=== PATIENT | female | born 1945 | race African-American/Black ===

== ENCOUNTER 2016-08-16 23:33 | Inpatient (IN) | payer OTHER ==
[2016-08-16] MEDS ORDERED: ALBUTEROL SO4 2.5/IPRATROPIUM 0.5 INH SOL 3 ML VIAL.NEB. NEB ONE (23:40)
[2016-08-16] MEDS ORDERED: methylPREDNISolone NA SUCC 125 MG/2 ML VIAL ONE (23:40)
[2016-08-16] MEDS ORDERED: SODIUM CHLORIDE 1,000 ML IV SCH (23:45)
--- NOTE | 2016-08-16 23:47 | PDOC ---
History of Present Illness - General History Source: Patient, EMS Exam Limitations: No Limitations - History of Present Illness Initial Comments: 08/17/16 01:11 The patient is a 71 year old female, with a significant past medical history of asthma and diabetes, who presents to the emergency department via EMS with wheezing, shortness of breath and chest discomfort since earlier this evening. The patient additionally reports a subjective fever since earlier today. The patient states that her chest discomfort only occurs when she experiences episodes of shortness of breath. EMS reports that the patient was put on O2 and was given Duoneb x 5 and Solumedrol en route to the ED. Upon arrival to the ED, the patients O2 saturation is 92% on oxygen. The patient denies any recent illnesses, nausea, vomiting, diarrhea, constipation, abdominal pain or any dysuria. The patient states that she did get a flu shot this year. Her is with her in the ED. Allergies: None reported. Past Surgical History: None reported. Social History: Non smoker. Denies alcohol or drug use. PCP: Dr. Gutierrez ([place]) <Arcelia Salter - Last Filed: 08/17/16 01:26> <Thanh Mireles - Last Filed: 08/17/16 01:50> - General Chief Complaint: Shortness of Breath Stated Complaint: SHORTNESS OF BREATH Past History <Arcelia Salter - Last Filed: 08/17/16 01:26> <Thanh Mireles - Last Filed: 08/17/16 01:50> - Past Medical History Allergies/Adverse Reactions: Allergies Allergy/AdvReac Type Severity Reaction Status Date / Time No Known Allergies Allergy Verified 08/16/16 23:49 Review of Systems - Review of Systems Able to Perform ROS?: Yes Comments:: 08/17/16 00:22 GENERAL/CONSTITUTIONAL: +Fever. No chills. No weakness. HEAD, EYES, EARS, NOSE AND THROAT: No change in vision. No ear pain or discharge. No sore throat. CARDIOVASCULAR: +Shortness of breath, chest pain. RESPIRATORY: +Wheezing. No cough or hemoptysis. GASTROINTESTINAL: No nausea, vomiting, diarrhea or constipation. GENITOURINARY: No dysuria, frequency, or change in urination. MUSCULOSKELETAL: No joint or muscle swelling or pain. No neck or back pain. SKIN: No rash. NEUROLOGIC: No headache, vertigo, loss of consciousness, or change in strength/ sensation. ENDOCRINE: No increased thirst. No abnormal weight change. HEMATOLOGIC/LYMPHATIC: No anemia, easy bleeding, or history of blood clots. ALLERGIC/IMMUNOLOGIC: No hives or skin allergy. <Arcelia Salter - Last Filed: 08/17/16 01:26> *Physical Exam - Vital Signs Last Vital Signs Temp Pulse Resp BP Pulse Ox 101.2 F H 130 H 25 H 182/79 92 L 08/16/16 23:45 08/16/16 23:45 08/16/16 23:45 08/16/16 23:45 08/16/16 23:45 - Physical Exam Comments: 08/17/16 01:12 GENERAL: Awake, alert, and fully oriented, in no acute distress. HEAD: No signs of trauma. EYES: PERRLA, EOMI, sclera anicteric, conjunctiva clear. ENT: Auricles normal inspection, hearing grossly normal, nares patent, oropharynx clear without exudates. Moist mucosa. NECK: Normal ROM, supple, no lymphadenopathy, JVD, or masses. LUNGS: Diffuse wheezing and rales in both lung gonzales. Breath sounds equal. No crackles. HEART: Regular rate and rhythm, normal S1 and S2, no murmurs, rubs or gallops. ABDOMEN: Soft, nontender, normoactive bowel sounds. No guarding, no rebound. No masses. EXTREMITIES: Normal range of motion, no peripheral edema. No clubbing or cyanosis. No cords, erythema, or tenderness. NEUROLOGICAL: Cranial nerves II through XII grossly intact. Normal speech, normal gait. SKIN: Warm, dry, normal turgor, no rashes or lesions noted. <Arcelia Salter - Last Filed: 08/17/16 01:26> Heart Score/ECG Review #1 ECG reviewed & interpreted by me at: 00:02 (Vent Rate: 124 bpm. Sinus tachycardia. Biatrial enlargement.) <Arcelia Salter - Last Filed: 08/17/16 01:26> ED Treatment Course - LABORATORY CBC & Chemistry Diagram: 08/17/16 00:43 08/16/16 00:43 <Arcelia Salter - Last Filed: 08/17/16 01:26> - LABORATORY CBC & Chemistry Diagram: 08/17/16 00:43 08/16/16 00:43 <Thanh Mireles - Last Filed: 08/17/16 01:50> Medical Decision Making - Medical Decision Making 08/17/16 01:26 EXAM: CHEST X-RAY PORTABLE Reviewed By: Dr. Conrado Carbajal IMPRESSION: No acute radiographic abnormality. <Arcelia Salter - Last Filed: 08/17/16 01:26> - Medical Decision Making 08/17/16 01:39 CXR read as negative by the radiologist. I looked at the CXR and there appears to be a streaky lingular infiltrate? There is a clinical pneumonia. <Thanh Mireles - Last Filed: 08/17/16 01:50> *DC/Admit/Observation/Transfer - Attestations Scribe Attestion: 08/17/16 00:10 Documentation prepared by Arcelia Salter, acting as pediatric medical assistant for Thanh Mireles MD, /DO. <Arcelia Salter - Last Filed: 08/17/16 01:26> - Discharge Dispostion Admit: Yes <Thanh Mireles - Last Filed: 08/17/16 01:50> Diagnosis at time of Disposition: Pneumonia - Discharge Dispostion Condition at time of disposition: Fair - Referrals Referrals: James Gutierrez [Primary Care Provider] -
[2016-08-16] MEDS ORDERED: ACETAMINOPHEN 500 MG TABLET (FP) PO ONE (23:59)
[2016-08-17] MEDS: ALBUTEROL SO4 0.083% IH SOL 2.5 MG/3 ML VIAL.NEB. NEB SCH ×4 (00:10→03:06)
[2016-08-17] MEDS ORDERED: ALBUTEROL SO4 0.083% IH SOL 2.5 MG/3 ML VIAL.NEB. NEB ONE ×2 (00:14→02:03)
[2016-08-17] MEDS ORDERED: ACETAMINOPHEN 325 MG TABLET (FP) ONE (00:14)
[2016-08-17 00:58] LABS: BASOPHIL 0.9 % (0-2.0); EOSINOPHIL 0.1 % (0-4.5); MCH 29.6 pg (25.7-33.7); MCHC 33.3 g/dl (32.0-36.0); MEAN PLT VOLUME 9.4 fl (7.5-11.1); NEUTROPHILS 88.3 % (42.8-82.8); PLATELET COUNT 245 K/MM3 (134-434); RDW 12.9 % (11.6-15.6); WHITE BLOOD COUNT 18.4 K/mm3 (4.0-10.0)
[2016-08-17] MEDS ORDERED: SODIUM CHLORIDE 500 ML IV STA (01:08)
[2016-08-17] MEDS ORDERED: AZITHROMYCIN 1 GM PACKET PO ONE (01:09)
[2016-08-17] MEDS ORDERED: CEFTRIAXONE 1,000 MG in DEXTROSE 5%-WATER - 50 ML IVPB ONE (01:10)
[2016-08-17 01:18] LABS: ALBUMIN 4.3 g/dl (3.4-5.0); ALK PHOS 84 U/L (45-117); ANION GAP 13 (8-16); BILIRUBIN,TOTAL 0.6 mg/dL (0.2-1.0); CALCIUM 9.5 mg/dL (8.5-10.1); CO2 26 mmol/L (21-32); CREATININE 0.9 mg/dL (0.55-1.02); GLUCOSE,RANDOM 162 mg/dL (74-106); SGOT/AST 21 U/L (15-37); SGPT/ALT 22 U/L (12-78)
[2016-08-17 01:21] LABS: TROPONIN I < 0.02 ng/ml (0.00-0.05)
--- NOTE | 2016-08-17 01:48 | PN ---
<Della Meeks - Last Filed: 08/17/16 01:48> Teaching Attending Note Name of Resident: Nel Bains <Marin Kitchen - Last Filed: 08/17/16 04:14> Teaching Attending Note ATTENDING PHYSICIAN STATEMENT I saw and evaluated the patient. I reviewed the resident's note and discussed the case with the resident. I agree with the resident's findings and plan as documented. SUBJECTIVE: The patient is a 71 year old female being admitted for shortness of breath who presented to the emergency department with wheezing, shortness of breath, and chest discomfort since earlier this evening. Upon examination the patient was on 4L of O2. The patient reported that her peak flow at baseline is less than 200 mm. She denied any previous intubation. Past medical history: Asthma, Diabetes OBJECTIVE: Vital Signs: Last Vital Signs Temp Pulse Resp BP Pulse Ox 99.5 F 144 H 25 H 132/62 95 08/17/16 01:11 08/17/16 01:11 08/16/16 23:45 08/17/16 01:11 08/17/16 01:11 GENERAL: Elderly female lying in propped up position Awake, alert, and fully oriented, in mild respiratory distress. HEENT: Atraumatic. PERRLA, EOMI. Moist mucosa. No JVD. NC at 4L LUNGS: Decreased breath sounds bilaterally, expiratory wheezes, left basal crackle, using accessory muscles. HEART: Regular rate and rhythm, normal S1 and S2, systolic murmur, peripheral pulses normal and equal bilaterally. ABDOMEN: Soft, nontender, normoactive bowel sounds. No guarding, no rebound. No masses EXTREMITIES: Normal inspection, Normal range of motion, no edema. No clubbing or cyanosis. NEUROLOGICAL: Cranial nerves II through XII grossly intact. Normal speech, normal gait, no focal sensorimotor deficits SKIN: Warm, Dry, normal turgor, no rashes or lesions noted. Labs: CBCD WBC 18.4 K/mm3 (4.0-10.0) H 08/17/16 00:43 RBC 4.62 M/mm3 (3.60-5.2) 08/17/16 00:43 Hgb 13.7 GM/dL (10.7-15.3) 08/17/16 00:43 Hct 41.1 % (32.4-45.2) 08/17/16 00:43 MCV 89.0 fl (80-96) 08/17/16 00:43 MCHC 33.3 g/dl (32.0-36.0) 08/17/16 00:43 RDW 12.9 % (11.6-15.6) 08/17/16 00:43 Plt Count 245 K/MM3 (134-434) 08/17/16 00:43 MPV 9.4 fl (7.5-11.1) 08/17/16 00:43 CMP Sodium 139 mmol/L (136-145) 08/16/16 00:43 Potassium 3.4 mmol/L (3.5-5.1) L 08/16/16 00:43 Chloride 100 mmol/L (98-107) 08/16/16 00:43 Carbon Dioxide 26 mmol/L (21-32) 08/16/16 00:43 Anion Gap 13 (8-16) 08/16/16 00:43 BUN 11 mg/dL (7-18) 08/16/16 00:43 Creatinine 0.9 mg/dL (0.55-1.02) 08/16/16 00:43 Creat Clearance w eGFR > 60 (>60) 08/16/16 00:43 Calcium 9.5 mg/dL (8.5-10.1) 08/16/16 00:43 Total Bilirubin 0.6 mg/dL (0.2-1.0) 08/16/16 00:43 AST 21 U/L (15-37) 08/16/16 00:43 ALT 22 U/L (12-78) 08/16/16 00:43 Alkaline Phosphatase 84 U/L (45-117) 08/16/16 00:43 Total Protein 8.0 g/dl (6.4-8.2) 08/16/16 00:43 Albumin 4.3 g/dl (3.4-5.0) 08/16/16 00:43 Imaging: CXR Findings-Frontal view of chest Heart size normal. No consolidation, pleural effusion or pneumothorax. No acute bony abnormality. Impression-No acute radiographic abnormality. ASSESSMENT AND PLAN: Sepsis vs leucocytosis secondary to pneumonia and asthma exacerbation -ABG (chronic hypoxia with metabolic acidosis) -Continue Ceftriaxone 1gm Daily -Continue Azithromycin -4L Nasal O2 -May need Bipap Asthma -PFER -Albuterol Q6H [facility] Diabetes -Hold metformin now due to lactic acidosis -Insulin sliding scale -BGM -Monitor hypoglycemic episodes Lactic Acidosis -Could be due to sepsis vs. metformin use DVT PPX -Continue Lovenox sq FEN -IV NS 125ml/hr -Repeat electrolytes in AM -Diabetic diet Admit to med surg. Documentation prepared by Marin Kitchen, acting as medical clinic manager for Dr. Constantino MD.
[2016-08-17] MEDS ORDERED: MAGNESIUM SULF 50% (8.12 MEQ/2 ML-1 GM VIAL) IVPB ONE (01:59)
[2016-08-17] MEDS ORDERED: CEFTRIAXONE 50 ML ONE (02:03)
[2016-08-17] MEDS ORDERED: MAGNESIUM SULF 50% (8.12 MEQ/2 ML-1 GM VIAL) ONE (02:06)
[2016-08-17 02:07] LABS: URINE APPEARANCE CLEAR; URINE BILIRUBIN NEGATIVE (NEGATIVE); URINE BLOOD NEGATIVE (NEGATIVE); URINE COLOR LTYELLOW; URINE GLUCOSE (UA) 1+ (NEGATIVE); URINE KETONE NEGATIVE (NEGATIVE); URINE LEUK ESTERASE NEGATIVE (NEGATIVE); URINE NITRITE NEGATIVE (NEGATIVE); URINE PROTEIN NEGATIVE (NEGATIVE); URINE UROBILINOGEN NEGATIVE E.U./dl (0.2-1.0)
[2016-08-17] MEDS ORDERED: AZITHROMYCIN 1 GM PACKET ONE (02:20)
[2016-08-17 02:23] LABS: ARTERIAL BLD GAS O2 SATURATION 91.9 % (90-98.9); ARTERIAL BLOOD GAS HCO3 21.7 meq/L (22-26)
[2016-08-17 02:27] LABS: ALLENS TEST POSITIVE; ART PUNCT SITE LEFT RADIAL; METHEMOGLOBIN 1.5 % (0.4-1.5); PT. ON O2? NO; TYPE OF O2 ROOM AIR
[2016-08-17 02:28] LABS: ARTERIAL BLOOD GAS PO2 61.3 mmHg (70-100)
--- NOTE | 2016-08-17 02:55 | HP ---
CHIEF COMPLAINT: SOB and cough PCP: Dr. Gutierrez ([place]) HISTORY OF PRESENT ILLNESS: 71 year old female presented to the ED with chief complaints of SOB x 1 week. A/ c to the patient, she started having SOB with AE of asthma, took albuterol neb once everyday with symptomatic relief. Doesn't use albuterol at night. SOB was associated with cough, producing yellowish whitish sputum, no blood noticed. Also mentions of having chills, rigors but denies fever, sweating, palpitation, chest pain, palpitation. SOB and cough got worse since yesterday. Has had runny nose on/off, watery eyes. Patient mentioned her PEFR is < 200 Patient reports that her daughter who lives with her recently got diagnosed with bronchitis and is taking antibiotics. Has h/o dizziness, visited doctor in April,, MRI was done which was negative. Patient was given a blue pill for dizziness for 2weeks and the symptoms relieved completely. Since last week, she has been experiencing dizziness and started taking the pill again. Doesn't remember the name of the medication, she will try to get the medicine bottles tomorrow. Denies loc, headache, blurring of vision. Patient had her echo done last april and was normal. 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 Denies abdominal pain, nausea or vomiting. Bowel/Bladder habit normal. Sleep disturbed, appetite decreased since illness. ER course was notable for: (1) CBC, CMP, UA, Lactic acidosis (2) ABG- Hypoxia CXR-infiltrates (3) IV Ceftriaxone, IV Azithromycin, Albuterol Recent Travel: None PAST MEDICAL HISTORY: Hypertension, Diabetes Mellitus, Asthma, Dizziness ( Etiology unknown) PAST SURGICAL HISTORY: None Social History: Smoking: Smoked 1pack/month for 1 year during teenager Alcohol: Occasional alcohol intake in the past Drugs: No use of illicit drugs. Family History: Unknown Allergies garlic Allergy (Verified 08/17/16 02:46) Penicillins Allergy (Verified 08/17/16 02:46) HOME MEDICATIONS: Patient will confirm her medication tomorrow, doesn't have the list today. REVIEW OF SYSTEMS CONSTITUTIONAL: Present: Chills + Absent: fever, chills, diaphoresis, generalized weakness, malaise, loss of appetite, weight change HEENT: Present: rhinorrhea, nasal congestion Absent: , throat pain, throat swelling, difficulty swallowing, mouth swelling, ear pain, eye pain, visual changes CARDIOVASCULAR: Absent: chest pain, syncope, palpitations, irregular heart rate, lightheadedness , peripheral edema RESPIRATORY: Present: cough, shortness of breath, dyspnea with exertion, wheezing Absent: orthopnea, stridor, hemoptysis GASTROINTESTINAL: Absent: abdominal pain, abdominal distension, nausea, vomiting, diarrhea, constipation, melena, hematochezia GENITOURINARY: Absent: dysuria, frequency, urgency, hesitancy, hematuria, flank pain, genital pain MUSCULOSKELETAL: Absent: myalgia, arthralgia, joint swelling, back pain, neck pain SKIN: Absent: rash, itching, pallor HEMATOLOGIC/IMMUNOLOGIC: Absent: easy bleeding, easy bruising, lymphadenopathy, frequent infections ENDOCRINE: Absent: unexplained weight gain, unexplained weight loss, heat intolerance, cold intolerance NEUROLOGIC: Present: Dizziness Absent: headache, focal weakness or paresthesias, dizziness, unsteady gait, seizure, mental status changes, bladder or bowel incontinence PSYCHIATRIC: Absent: anxiety, depression, suicidal or homicidal ideation, hallucinations. PHYSICAL EXAMINATION GENERAL: Elderly female lying in propped up position, Awake, alert, and fully oriented, in mild respiratory distress, nasal oxygen @ 4L. HEAD: Normal with no signs of trauma. EYES: EOM intact, no pallor or icterus. EARS, NOSE, THROAT: Ears normal. Moist mucous membranes. NECK: Supple. LUNGS: Decreased breath sounds bilaterally, expiratory wheeze, use of accessory muscle. HEART: Regular rate and rhythm, normal S1 and S2 systolic murmur. ABDOMEN: Soft, nontender, not distended, normoactive bowel sounds, no guarding, no rebound, no masses. No hepatomegaly or splenomegaly. MUSCULOSKELETAL: Normal range of motion at all joints. No bony deformities or tenderness. No CVA tenderness. UPPER EXTREMITIES: 2+ pulses, warm, well-perfused. No cyanosis. No clubbing. No peripheral edema. LOWER EXTREMITIES: 2+ pulses, warm, well-perfused. No calf tenderness. No peripheral edema. NEUROLOGICAL: Cranial nerves II-XII intact. Normal speech. Gait not observed. PSYCHIATRIC: Cooperative. Good eye contact. Appropriate mood and affect. SKIN: Warm, dry, normal turgor, no rashes or lesions noted. Laboratory Results - last 24 hr 08/17/16 02:14 Puncture Site Left radial ABG pH 7.40 ABG pCO2 at Pt Temp 35.6 ABG pO2 at Pt Temp 61.3 L ABG HCO3 21.7 L ABG O2 Sat (Measured) 91.9 ABG O2 Content 16.4 ABG Base Excess -2.0 Tariq Test Positive Carboxyhemoglobin 1.1 Methemoglobin 1.5 O2 Delivery Device Room air Oxygen Flow Rate No PEEP 0.0 Imaging: CXR Findings-Frontal view of chest Heart size normal. No consolidation, pleural effusion or pneumothorax. No acute bony abnormality. Impression-No acute radiographic abnormality. ASSESSMENT/PLAN: 71 year old female with past medical history of Hypertension, Diabetes Mellitus , Asthma, Dizziness (Etiology unknown) presented to the ED with chief complaints of SOB x 1 week. # Sepsis secondary to Community Acquired Pneumonia Acute hypoxic respiratory failure CURB-65- 1; PSI -61 Patient presented with SOB, productive sputum On arrival, Temp-101.2F RR-25 using accessory muscles, Spo2-95% . Temp/RR decreasing. Leukocytosis of 18, could be due to sepsis vs use of steroids at home Lactic acidosis of 2.15 could be due to sepsis vs metformin use Repeat Lactic acid ordered for 6am. In the ED, patient received IV Ceftriaxone, IV Azithromycin, Albuterol Admitted in Med Surg ABG-Acute hypoxic respiratory failure Patient started on IV Ceftriaxone 1gm Daily IV Azithromycin Nasal Oxygen @ 4L IV Solumedrol 60mg TID May need Bipap Tylenol PRN ordered Blood culture/Urine culture pending Sputum culture pending Urine for legionella pending Monitor vitals # AE of Asthma- Moderate persistent asthma May have been precipitated by CAP. SOB worsening since a week, used albuterol daily x 1 week, can speak a full sentence PEFR <200 in the past, PEFR <100 prebronchodilator and 130 post bronchodilator Ipratropium/Albuterol Q6H [place] # Hypertension-Now controlled Home medication not confirmed, patient will get her list in the morning. # Diabetes Mellitus RBS- 162. Takes Metformin at home. Will hold Metformin now due to lactic acidosis Insulin sliding scale BGM Monitor hypoglycemic episodes # Lactic acidosis Could be due to sepsis vs metformin use. # Dizziness-unknown etiology Had her MRI done last april which was benign Now symptoms resolving # FEN IV NS @ 125mls/hr decreased to 100mls/hr---> stopped the fluids now. Electrolytes to be repeated tomorrow Diabetic diet # Prophylaxis For DVT- On Lovenox sq For GI- Not indicated # Code status- Full code # Dispo: Admitted in Med-surg. Duration of stay unknown. Illness, Investigation and plan of care explained to the patient. She verbalized understanding. Case seen and discussed with Dr. Meeks. Visit type - Emergency Visit Emergency Visit: Yes ED Registration Date: 08/17/16 Care time: The patient presented to the Emergency Department on the above date and was hospitalized for further evaluation of their emergent condition. - New Patient This patient is new to me today: Yes Date on this admission: 08/17/16 - Critical Care Critical Care patient: No
[2016-08-17] MEDS ORDERED: ALBUTEROL SO4 0.042% IH SOL 1.25 MG/3 ML VIAL.NEB NEB PRN ×3 (03:00→11:17)
[2016-08-17] MEDS ORDERED: SODIUM CHLORIDE 1,000 ML IV SCH (04:28)
[2016-08-17 04:33] VITALS: BMI 23.9
[2016-08-17] MEDS ORDERED: methylPREDNISolone NA SUCC 125 MG/2 ML VIAL IVPB SCH ×2 (04:45→14:00)
[2016-08-17] MEDS ORDERED: ALBUTEROL SO4 2.5/IPRATROPIUM 0.5 INH SOL 3 ML VIAL.NEB. NEB SCH (06:00)
[2016-08-17 06:02] LABS: ARTERIAL BLD GAS O2 SATURATION 93.8 % (90-98.9); ARTERIAL BLOOD GAS BASE EXCESS -3.4 meq/l (-2-2); ARTERIAL BLOOD GAS HCO3 20.8 meq/L (22-26); ARTERIAL BLOOD GAS PO2 69.7 mmHg (70-100); ARTERIAL BLOOD GAS pH 7.37 (7.35-7.45)
[2016-08-17 06:03] LABS: ALLENS TEST POSITIVE; ART PUNCT SITE RIGHT RADIAL; LPM/O2% 4L; PT. ON O2? YES; TYPE OF O2 NASAL
[2016-08-17] MEDS ORDERED: ACETAMINOPHEN 500 MG TABLET (FP) PO PRN ×2 (06:03→09:47)
[2016-08-17] MEDS ORDERED: INSULIN (NOVOLOG) ASPART 100 UNITS/ML 10ML VIAL ONE (06:09)
[2016-08-17] MEDS: INSULIN SLIDING SCALE (NOVOLOG) 1 VIAL SQ SCH ×4 (06:10→22:16)
[2016-08-17] MEDS ORDERED: FUROSEMIDE 40 MG/4 ML INJECTABLE VIAL IVPB ONE (06:40)
[2016-08-17 08:28] LABS: MCH 29.7 pg (25.7-33.7); MCHC 32.9 g/dl (32.0-36.0); MEAN CELL VOLUME 90.1 fl (80-96); MEAN PLT VOLUME 9.3 fl (7.5-11.1); PLATELET COUNT 226 K/MM3 (134-434); RDW 12.9 % (11.6-15.6); WHITE BLOOD COUNT 24.3 K/mm3 (4.0-10.0)
[2016-08-17 09:08] LABS: CHOLESTEROL 267 mg/dL (50-200); LDL CHOLESTEROL (ONLY SJRH) 169 mg/dL (5-100)
[2016-08-17 09:10] LABS: ALBUMIN 3.9 g/dl (3.4-5.0); BILIRUBIN,TOTAL 0.4 mg/dL (0.2-1.0); CREATININE 1.1 mg/dL (0.55-1.02); MAGNESIUM 2.3 mg/dL (1.8-2.4); TOT PROT 7.5 g/dl (6.4-8.2)
--- NOTE | 2016-08-17 09:30 | PN ---
Physical Exam: SUBJECTIVE: Patient seen and examined Patient is feeling better, but still has a fever of 101.3 rectally, with lactic acidosis of 6.0, patient was given Lasix over night since became dyspneic on fluid and IVF was discontinued. Patient stated that her daughter was sick who is 35yo female. OBJECTIVE: Rectal temp.101.3 Vital Signs Temperature 99.9 F H 08/17/16 05:54 Pulse Rate 107 H 08/17/16 05:54 Respiratory Rate 22 08/17/16 05:54 Blood Pressure 142/82 08/17/16 05:54 O2 Sat by Pulse Oximetry (%) 95 08/17/16 04:13 Vit GENERAL: The patient is awake, alert, and fully oriented, in no acute distress. HEAD: Normal with no signs of trauma. EYES: PERRL, extraocular movements intact, sclera anicteric, conjunctiva clear. No ptosis. ENT: Ears normal, nares patent, oropharynx clear without exudates, moist mucous membranes. NECK: Trachea midline, full range of motion, supple. LUNGS: Decreased air entry onn the left , positive wheezing and crackles on the right side , no accessory muscle use. HEART: sinus tachycardia , S1, S2 without murmur, rub or gallop. ABDOMEN: Soft, nontender, nondistended, normoactive bowel sounds, no guarding, no rebound, no hepatosplenomegaly, no masses. EXTREMITIES: 2+ pulses, warm, well-perfused, no edema. NEUROLOGICAL: Cranial nerves II through XII grossly intact. Normal speech, gait not observed. PSYCH: Normal mood, normal affect. SKIN: Warm to touch , dry, normal turgor, no rashes or lesions noted Laboratory Results - last 24 hr 08/17/16 08/17/16 08/17/16 02:14 06:00 06:07 WBC RBC Hgb Hct MCV MCHC RDW Plt Count MPV Neutrophils % Lymphocytes % Puncture Site Left radial Right radial ABG pH 7.40 7.37 ABG pCO2 at Pt Temp 35.6 36.7 ABG pO2 at Pt Temp 61.3 L 69.7 L ABG HCO3 21.7 L 20.8 L ABG O2 Sat (Measured) 91.9 93.8 ABG O2 Content 16.4 16.8 ABG Base Excess -2.0 -3.4 L Tariq Test Positive Positive Carboxyhemoglobin 1.1 Methemoglobin 1.5 O2 Delivery Device Room air Nasal Oxygen Flow Rate No 4l PEEP 0.0 0.0 POC Glucometer 197 Lactic Acid 08/17/16 08/17/16 07:00 07:00 WBC 24.3 H D RBC 4.55 Hgb 13.5 Hct 41.0 MCV 90.1 MCHC 32.9 RDW 12.9 Plt Count 226 MPV 9.3 Neutrophils % Y Lymphocytes % Y Puncture Site ABG pH ABG pCO2 at Pt Temp ABG pO2 at Pt Temp ABG HCO3 ABG O2 Sat (Measured) ABG O2 Content ABG Base Excess Tariq Test Carboxyhemoglobin Methemoglobin O2 Delivery Device Oxygen Flow Rate PEEP POC Glucometer Lactic Acid 6.035 H* Active Medications Generic Name Dose Route Start Last Admin Trade Name Freq PRN Reason Stop Dose Admin Acetaminophen 500 mg 08/17/16 06:03 08/17/16 08:28 Tylenol - PO 500 mg Q6H PRN Administration FEVER OR PAIN Albuterol Sulfate 1 amp 08/17/16 03:00 Ventolin 0.042trength) - NEB Q6H PRN Albuterol/Ipratropium 1 amp 08/17/16 06:00 08/17/16 05:09 Duoneb - NEB 1 amp QIDR GIACOMO Administration Enoxaparin Sodium 40 mg 08/17/16 10:00 Lovenox - SQ DAILY [facility] Azithromycin 250 mls @ 250 mls/hr 08/17/16 10:00 Zithromax 500mg Ivpb (Pre-Docked) IVPB DAILY [facility] Ceftriaxone Sodium 50 mls @ 100 mls/hr 08/17/16 10:00 Rocephin 1gm Ivpb (Pre-Docked) IVPB DAILY [facility] Insulin Aspart 1 vial 08/17/16 07:00 08/17/16 06:10 Novolog Vial Sliding Scale - SQ 2 units ACHS GIACOMO Administration Protocol Methylprednisolone Sodium Succinate 60 mg 08/17/16 14:00 Solu-Medrol - IVPB TID GIACOMO Laboratory Tests 08/17/16 08/17/16 08/17/16 00:43 00:43 07:00 WBC 18.4 H 24.3 H D Neutrophils % 88.3 H Lactic Acid 2.150 H* 08/17/16 07:00 WBC Neutrophils % Lactic Acid 6.035 H* ASSESSMENT/PLAN: The patient is a 71 year old female being admitted for shortness of breath who presented to the emergency department with wheezing, shortness of breath, and chest discomfort # Severe Sepsis with Lactic acid of 6.0 ;Fever of 101.3 rectally with Tachycardia and leukocytosis due to possible Influenza/Pneumonia will get star CXr since as per night team, patient went into pulmonary edema and was given stat dose of Lasix ID consulted # Acute Lactic acidosis , wll repeat the level in 3 hrs , Gentle IVF will restart after CXR stat that was ordered. # Possible Influenza, will start her empirically on Tamiflu as per Patient , her daughter had cold and she got it from her. quick swab is negative for now, culture was send out . Droplet precaution , isolate the patient. # Pneumonia(CAP) On IV rocephin/zithromax continue, will give her one dose of Vancomycin discussed with ID, Pulmonary consult requested as well # Acute Asthma exacerabtion ; On duoneb tx, Steroids IV 60mg q8h Pulmonary consulr for further recommendation and management # Hx of T2DM on metformin will hold off for now. will transfer the patient to the ICU. Discussed with ICU attending . Critical care time of 35 minutes Visit type - Emergency Visit Emergency Visit: Yes ED Registration Date: 08/17/16 Care time: The patient presented to the Emergency Department on the above date and was hospitalized for further evaluation of their emergent condition. - New Patient This patient is new to me today: Yes Date on this admission: 08/17/16 - Critical Care Critical Care patient: Yes Total Critical Care Time (in minutes): 35 Critical Care Statement: The care of this patient involved high complexity decision making to prevent further life threatening deterioration of the patient 's condition and/or to evalute & treat vital organ system(s) failure or risk of failure.
--- NOTE | 2016-08-17 09:50 | PN ---
Progress Note (short form) - Note Progress Note: ID Consult dictated Sepsis, likely secondary to lung source Community acquired v. atypical pneumonia Possible influenza Exacerbation COPD PCN allergy Will isolate, start Tamiflu Empiric zosyn/ cefepime Repeat CXR
[2016-08-17 09:57] LABS: PLATELET COMMENT2 NO CLOTTING DETECTED; PLATELET ESTIMATE ADEQUATE (NORMAL)
[2016-08-17] MEDS ORDERED: ACETAMINOPHEN 325 MG TABLET (FP) PO PRN (09:59)
[2016-08-17] MEDS ORDERED: CEFTRIAXONE 50 ML IVPB SCH (10:00)
[2016-08-17] MEDS ORDERED: OSELTAMIVIR PHOSPHATE 75 MG CAPSULE PO SCH ×3 (10:00)
[2016-08-17] MEDS ORDERED: AZITHROMYCIN IVPB 250 ML IVPB SCH (10:00)
[2016-08-17] MEDS ORDERED: ENOXAPARIN NA (PORCINE) 40 MG/0.4 ML DISP.SYRIN SQ SCH (10:00)
[2016-08-17] MEDS ORDERED: CEFEPIME HCL 1 GM VIAL (RESTRICTED TO ID) IVPB SCH (10:00)
[2016-08-17] MEDS ORDERED: VANCOMYCIN 1 GRAM (PRE-DOCKED) 250 ML IVPB ONE (10:30)
--- NOTE | 2016-08-17 10:59 | CONS ---
DATE OF CONSULTATION: 08/17/2016 HISTORY OF PRESENT ILLNESS: The patient is a 71-year-old female with a history of asthma evaluated for sepsis. Patient reports that over the past week, she has worsening shortness of breath and wheezing. She had taken bronchodilators without significant improvement. Her symptoms worsened over the 1 day prior to admission. She presented to the emergency room where she was found to have a fever of 101.2. Her O2 saturation was 92% on oxygen. She was found to have a lactic acid level of 6.0, white blood cell count 24.3, and influenza swab was performed and was negative. Chest x-ray showed some increased markings in the left lung field, possible pneumonia. Patient is awake. However, she is ill-appearing. She is profoundly weak, has a persistent cough. She denies any purulent sputum production. Of note, the patient reports her daughter had a recent respiratory tract illness, although not confirmed influenza. She has received influenza vaccine. PAST MEDICAL HISTORY: Positive for asthma, diabetes mellitus. ALLERGIES: To PENICILLIN. MEDICATIONS: Solu-Medrol, Zithromax, ceftriaxone, Lovenox, NovoLog. SOCIAL HISTORY: She lives at home. She is a retired bottle line worker. She is a nonsmoker, nondrinker. No known risk factors for HIV. SYSTEMS REVIEW: Neurologic: No loss of consciousness, seizure activity, focal weakness. Cardiac: Negative for chest pain or palpitations. Respiratory: As per HPI. Gastrointestinal: Negative for vomiting or diarrhea. Genitourinary: Negative for urinary tract infection. LABORATORY DATA: White count 24.3, 88 neutrophils, 8 lymphocytes, 2 monocytes, hematocrit 41.0, platelet count 226. Urinalysis negative. Influenza swab negative. PHYSICAL EXAMINATION: General: She is awake, however, she is weak-appearing. She has persistent cough. Vital signs: Temperature 99.9, maximum temperature 101.2, blood pressure 142/82, pulse 107 and regular, respirations 22 per minute. HEENT: Sclerae anicteric. Dry mucous membranes. Heart: Heart sounds S1, S2. Lungs: Bilateral rhonchi and crepitations lower lung gonzales. Abdomen: Soft. No tenderness elicited. No mas, rebound, or rigidity. Extremities: Negative for edema. IMPRESSION: 1. Sepsis, likely secondary to lung source. 2. Community-acquired versus atypical pneumonia. 3. Possible influenza. 4. Exacerbation bronchial asthma/chronic obstructive pulmonary disease. 5. PENICILLIN allergy. Will place on droplet precautions. Start Tamiflu. Await sputum culture, urine legionella antigen. Empiric antibiotic coverage with Zithromax and cefepime. Repeat chest x-ray. Bronchodilators, steroids. Will follow. Thank you for the kind referral. HUSSEIN CORTEZ M.D. [id number]
[2016-08-17] MEDS: ALBUTEROL SO4 2.5/IPRATROPIUM 0.5 INH SOL 3 ML VIAL.NEB. NEB SCH ×2 (12:00→18:00)
--- NOTE | 2016-08-17 12:14 | CONSULT ---
Consult Consult Specialty:: PULM / CCM Referred by:: Dr. Aguilar Jesus Reason for Consultation:: PNA - History of Present Illness Chief Complaint: SOB History of Present Illness: Ms. Nieto is a 71 y/o woman w/ a PMH sig for asthma & DM BIBA yesterday c/o fever, wheezing, SOB, cough, and chest discomfort X 1Wk. SOB was assoc w/ productive cough (yellowish-whitish sputum), (no blood). Pt also endorsed: chills, rigors, subjective fevers, & rhinorrhea. Pt received Duonebs & IV Solumed in the field. Pt denied any: recent illnesses, N/V/D, constipation, abd pain, or dysuria. (Pt states that she did get a flu shot this year). Pt does endorse active exposure @ home (daughter who lives w/ her recently dx'ed w/ bronchitis and is taking abx). Initially, pt admitted to the Med/Surg, but transferred now to the ICU this AM for SOB, continued fever, & a lactic acidosis --> 6.0 despite aggressive IVFs. - History Source History Provided By: Patient, Medical Record Limitations to Obtaining History: No Limitations - Past Medical History Pulmonary: Yes: Asthma ...: No Endocrine: Yes: Diabetes Mellitus - Alcohol/Substance Use Hx Alcohol Use: No - Smoking History Smoking history: Never smoked Have you smoked in the past 12 months: No - Social History Usual Living Arrangement: With Spouse ADL: Independent Place of : [facility] History of Recent Travel: No Home Medications - Allergies Allergies/Adverse Reactions: Allergies Allergy/AdvReac Type Severity Reaction Status Date / Time garlic Allergy Verified 08/17/16 02:46 Penicillins Allergy Verified 08/17/16 02:46 - Home Medications Home Medications: Ambulatory Orders Metformin HCl [Glucophage] 1,000 mg PO DAILY 08/17/16 Family Disease History - Family Disease History Family History: Denies Review of Systems - Review of Systems Constitutional: reports: Fever, Malaise Eyes: reports: No Symptoms HENT: reports: No Symptoms Neck: reports: No Symptoms Cardiovascular: reports: Chest Pain, Shortness of Breath Respiratory: reports: SOB Gastrointestinal: reports: No Symptoms Genitourinary: reports: No Symptoms Breasts: reports: No Symptoms Reported Musculoskeletal: reports: No Symptoms Integumentary: reports: No Symptoms Neurological: reports: No Symptoms Endocrine: reports: No Symptoms Hematology/Lymphatic: reports: No Symptoms Psychiatric: reports: No Symptoms Pain Intensity: 2 Physical Exam Vital Signs: Vital Signs Temperature 99 F 08/17/16 11:00 Pulse Rate 100 H 08/17/16 12:00 Respiratory Rate 20 08/17/16 12:00 Blood Pressure 124/70 08/17/16 12:00 O2 Sat by Pulse Oximetry (%) 96 08/17/16 11:41 Intake & Output 08/14/16 08/15/16 08/16/16 08/17/16 23:59 23:59 23:59 23:59 Intake Total 1375 Output Total 200 Balance 1175 Weight 68.039 kg 71.486 kg Constitutional: Yes: Well Nourished, No Distress, Calm Eyes: Yes: Conjunctiva Clear, EOM Intact HENT: Yes: WNL, Atraumatic, Normocephalic Neck: Yes: WNL, Supple, Trachea Midline Cardiovascular: Yes: WNL, Regular Rate and Rhythm, Tachycardia Respiratory: Yes: On Venti-Mask, Rhonchi, SOB, Wheezes Gastrointestinal: Yes: WNL, Normal Bowel Sounds, Soft ...Rectal Exam: Yes: Deferred Renal/: Yes: WNL Breast(s): Yes: WNL Musculoskeletal: Yes: WNL Extremities: Yes: WNL Edema: No Peripheral Pulses WNL: Yes Integumentary: Yes: WNL Neurological: Yes: WNL, Alert, Oriented Psychiatric: Yes: WNL Labs: CBC, BMP 08/17/16 07:00 08/17/16 07:00 ABG Results ABG pH 7.37 (7.35-7.45) 08/17/16 06:00 ABG pCO2 at Pt Temp 36.7 mmHg (35-45) 08/17/16 06:00 ABG pO2 at Pt Temp 69.7 mmHg (70-100) L 08/17/16 06:00 ABG HCO3 20.8 meq/L (22-26) L 08/17/16 06:00 ABG O2 Sat (Measured) 93.8 % (90-98.9) 08/17/16 06:00 ABG O2 Content 16.8 % vol (15-22) 08/17/16 06:00 ABG Base Excess -3.4 meq/l (-2-2) L 08/17/16 06:00 Laboratory Results - last 24 hr 08/16/16 08/17/16 08/17/16 00:43 00:43 00:43 WBC 18.4 H RBC 4.62 Hgb 13.7 Hct 41.1 MCV 89.0 MCHC 33.3 RDW 12.9 Plt Count 245 MPV 9.4 Neutrophils % 88.3 H Lymphocytes % 8.4 Monocytes % 2.3 L Eosinophils % 0.1 Basophils % 0.9 Band Neutrophils Platelet Estimate Platelet Comment RBC Morphology Puncture Site ABG pH ABG pCO2 at Pt Temp ABG pO2 at Pt Temp ABG HCO3 ABG O2 Sat (Measured) ABG O2 Content ABG Base Excess Tariq Test Carboxyhemoglobin Methemoglobin O2 Delivery Device Oxygen Flow Rate PEEP Sodium 139 Potassium 3.4 L Chloride 100 Carbon Dioxide 26 Anion Gap 13 BUN 11 Creatinine 0.9 Creat Clearance w eGFR > 60 POC Glucometer Random Glucose 162 H Lactic Acid 2.150 H* Calcium 9.5 Magnesium Total Bilirubin 0.6 AST 21 ALT 22 Alkaline Phosphatase 84 Creatine Kinase CK-MB (CK-2) Troponin I B-Natriuretic Peptide Total Protein 8.0 Albumin 4.3 Triglycerides Cholesterol Total LDL Cholesterol HDL Cholesterol Urine Color Urine Appearance Urine pH Ur Specific [place] Urine Protein Urine Glucose (UA) Urine Ketones Urine Blood Urine Nitrite Urine Bilirubin Urine Urobilinogen Ur Leukocyte Esterase 08/17/16 08/17/16 08/17/16 00:43 01:43 02:14 WBC RBC Hgb Hct MCV MCHC RDW Plt Count MPV Neutrophils % Lymphocytes % Monocytes % Eosinophils % Basophils % Band Neutrophils Platelet Estimate Platelet Comment RBC Morphology Puncture Site Left radial ABG pH 7.40 ABG pCO2 at Pt Temp 35.6 ABG pO2 at Pt Temp 61.3 L ABG HCO3 21.7 L ABG O2 Sat (Measured) 91.9 ABG O2 Content 16.4 ABG Base Excess -2.0 Tariq Test Positive Carboxyhemoglobin 1.1 Methemoglobin 1.5 O2 Delivery Device Room air Oxygen Flow Rate No PEEP 0.0 Sodium Potassium Chloride Carbon Dioxide Anion Gap BUN Creatinine Creat Clearance w eGFR POC Glucometer Random Glucose Lactic Acid Calcium Magnesium Total Bilirubin AST ALT Alkaline Phosphatase Creatine Kinase 270 H CK-MB (CK-2) 3.693 H Troponin I < 0.02 B-Natriuretic Peptide 92.49 Total Protein Albumin Triglycerides Cholesterol Total LDL Cholesterol HDL Cholesterol Urine Color Ltyellow Urine Appearance Clear Urine pH 5.0 Ur Specific [place] 1.016 Urine Protein Negative Urine Glucose (UA) 1+ H Urine Ketones Negative Urine Blood Negative Urine Nitrite Negative Urine Bilirubin Negative Urine Urobilinogen Negative Ur Leukocyte Esterase Negative 08/17/16 08/17/16 08/17/16 06:00 06:07 07:00 WBC 24.3 H D RBC 4.55 Hgb 13.5 Hct 41.0 MCV 90.1 MCHC 32.9 RDW 12.9 Plt Count 226 MPV 9.3 Neutrophils % 92.0 H Lymphocytes % 1.0 L D Monocytes % 2.0 L Eosinophils % Basophils % Band Neutrophils 5.0 Platelet Estimate Adequate Platelet Comment No clotting detected RBC Morphology Appears normal Puncture Site Right radial ABG pH 7.37 ABG pCO2 at Pt Temp 36.7 ABG pO2 at Pt Temp 69.7 L ABG HCO3 20.8 L ABG O2 Sat (Measured) 93.8 ABG O2 Content 16.8 ABG Base Excess -3.4 L Tariq Test Positive Carboxyhemoglobin Methemoglobin O2 Delivery Device Nasal Oxygen Flow Rate 4l PEEP 0.0 Sodium Potassium Chloride Carbon Dioxide Anion Gap BUN Creatinine Creat Clearance w eGFR POC Glucometer 197 Random Glucose Lactic Acid Calcium Magnesium Total Bilirubin AST ALT Alkaline Phosphatase Creatine Kinase CK-MB (CK-2) Troponin I B-Natriuretic Peptide Total Protein Albumin Triglycerides Cholesterol Total LDL Cholesterol HDL Cholesterol Urine Color Urine Appearance Urine pH Ur Specific [place] Urine Protein Urine Glucose (UA) Urine Ketones Urine Blood Urine Nitrite Urine Bilirubin Urine Urobilinogen Ur Leukocyte Esterase 08/17/16 08/17/16 08/17/16 07:00 07:00 07:00 WBC RBC Hgb Hct MCV MCHC RDW Plt Count MPV Neutrophils % Lymphocytes % Monocytes % Eosinophils % Basophils % Band Neutrophils Platelet Estimate Platelet Comment RBC Morphology Puncture Site ABG pH ABG pCO2 at Pt Temp ABG pO2 at Pt Temp ABG HCO3 ABG O2 Sat (Measured) ABG O2 Content ABG Base Excess Tariq Test Carboxyhemoglobin Methemoglobin O2 Delivery Device Oxygen Flow Rate PEEP Sodium 141 Potassium 3.2 L Chloride 103 Carbon Dioxide 20 L D Anion Gap 18 H BUN 10 Creatinine 1.1 H D Creat Clearance w eGFR 48.96 POC Glucometer Random Glucose 203 H D Lactic Acid 6.035 H* Calcium 9.0 Magnesium 2.3 Total Bilirubin 0.4 D AST 22 ALT 21 Alkaline Phosphatase 67 D Creatine Kinase CK-MB (CK-2) Troponin I B-Natriuretic Peptide Total Protein 7.5 Albumin 3.9 Triglycerides 39 Cholesterol 267 H Total LDL Cholesterol 169 H HDL Cholesterol 96 H Urine Color Urine Appearance Urine pH Ur Specific [place] Urine Protein Urine Glucose (UA) Urine Ketones Urine Blood Urine Nitrite Urine Bilirubin Urine Urobilinogen Ur Leukocyte Esterase 08/17/16 11:30 WBC RBC Hgb Hct MCV MCHC RDW Plt Count MPV Neutrophils % Lymphocytes % Monocytes % Eosinophils % Basophils % Band Neutrophils Platelet Estimate Platelet Comment RBC Morphology Puncture Site ABG pH ABG pCO2 at Pt Temp ABG pO2 at Pt Temp ABG HCO3 ABG O2 Sat (Measured) ABG O2 Content ABG Base Excess Tariq Test Carboxyhemoglobin Methemoglobin O2 Delivery Device Oxygen Flow Rate PEEP Sodium Potassium Chloride Carbon Dioxide Anion Gap BUN Creatinine Creat Clearance w eGFR POC Glucometer Random Glucose Lactic Acid 3.342 H* Calcium Magnesium Total Bilirubin AST ALT Alkaline Phosphatase Creatine Kinase CK-MB (CK-2) Troponin I B-Natriuretic Peptide Total Protein Albumin Triglycerides Cholesterol Total LDL Cholesterol HDL Cholesterol Urine Color Urine Appearance Urine pH Ur Specific [place] Urine Protein Urine Glucose (UA) Urine Ketones Urine Blood Urine Nitrite Urine Bilirubin Urine Urobilinogen Ur Leukocyte Esterase Microbiology 08/17/16 09:15 Urine For Antigen Detection Legionella Antigen - Final 08/17/16 09:15 Urine For Antigen Detection Streptococcus pneumoniae Antigen (M - Final 08/17/16 00:34 Nasopharyngeal Swab Influenza Types A,B Antigen (IKER) - Final 08/17/16 00:34 Nasopharyngeal Swab - Final Imaging - Results Chest X-ray: Image Reviewed (08/17: Clear (My Read)) EKG: Image Reviewed (08/17: S-Tach in the 120's w/o ectopy, normal axis, no ST aberrations, QTc = 453ms, no acute process (My Read)) Problem List - Problems (1) Pneumonia Code(s): J18.9 - PNEUMONIA, UNSPECIFIED ORGANISM (2) Asthma Code(s): J45.909 - UNSPECIFIED ASTHMA, UNCOMPLICATED (3) Diabetes mellitus Code(s): E11.9 - TYPE 2 DIABETES MELLITUS WITHOUT COMPLICATIONS Assessment/Plan ASSESS: this is a 71 y/o woman w/ asthma & DM who presents now w/ PNA in the setting of URI exposure. PLAN: -Supp FiO2 prn for an SpO2 > 92% -Nebs -Cont Steroids -Consider Bi-Level prn -Cefe -Azith -Viktoria -Trend LA -ID -FSs -Insulin prn -Diabetic Diet -NO Metformin in the ICU please -BR -Lovenox -SCDs This pt has multiple comorbidities including but NOT limited to DM & Asthma. From a clinical and treatment plan perspective, considering this pts comorbidities, as well as her new respiratory failure 2/2 pna, this pt has a high mortality rate and satisfies the definition of critical condition. Thus, this pt requires inpt admit to the ICU and based on these facts I do certify that this pt is expected to receive hospital services for at least 2 midnights. Felix Ward, ACNP-BC [id number] [facility] PULM / CCM
[2016-08-17] MEDS: methylPREDNISolone NA SUCC 125 MG/2 ML VIAL IVPB SCH ×2 (13:23→21:27)
[2016-08-17] MEDS: ACETAMINOPHEN 325 MG TABLET (FP) PO PRN ×2 (14:37→20:17)
[2016-08-17] MEDS: CEFEPIME 1 GM/100 ML BAG PRE-DOCKED IVPB SCH (17:15)
--- NOTE | 2016-08-17 17:47 | EKG ---
Test Reason : Blood Pressure : / mmHG Vent. Rate : 124 BPM Atrial Rate : 124 BPM P-R Int : 158 ms QRS Dur : 092 ms QT Int : 316 ms P-R-T Axes : 070 045 056 degrees QTc Int : 453 ms SINUS TACHYCARDIA WITH PREMATURE ATRIAL COMPLEXES BIATRIAL ENLARGEMENT ABNORMAL ECG NO PREVIOUS ECGS AVAILABLE Confirmed by TESSA SCHNEIDER, CARLA ([id number]) on 08/17/2016 5:47:20 PM Referred By: Confirmed By:CARLA ZARATE MD
[2016-08-17] MEDS: OSELTAMIVIR PHOSPHATE 75 MG CAPSULE PO SCH (21:28)
[2016-08-18] MEDS: ALBUTEROL SO4 2.5/IPRATROPIUM 0.5 INH SOL 3 ML VIAL.NEB. NEB SCH ×5 (00:30→23:01)
[2016-08-18] MEDS: CEFEPIME 1 GM/100 ML BAG PRE-DOCKED IVPB SCH ×3 (01:23→17:14)
[2016-08-18] MEDS: methylPREDNISolone NA SUCC 125 MG/2 ML VIAL IVPB SCH ×3 (05:15→22:00)
[2016-08-18 05:57] LABS: MCH 29.5 pg (25.7-33.7); MCHC 33.1 g/dl (32.0-36.0); MEAN CELL VOLUME 89.2 fl (80-96); MEAN PLT VOLUME 9.2 fl (7.5-11.1); PLATELET COUNT 226 K/MM3 (134-434); WHITE BLOOD COUNT 24.4 K/mm3 (4.0-10.0)
[2016-08-18] MEDS: INSULIN SLIDING SCALE (NOVOLOG) 1 VIAL SQ SCH ×4 (06:13→22:30)
[2016-08-18 06:33] LABS: ALBUMIN 3.1 g/dl (3.4-5.0); ANION GAP 9 (8-16); CO2 28 mmol/L (21-32); GLUCOSE,RANDOM 191 mg/dL (74-106); MAGNESIUM 2.3 mg/dL (1.8-2.4); PHOSPHOROUS 2.6 mg/dL (2.5-4.9); SGOT/AST 29 U/L (15-37)
[2016-08-18 06:35] LABS: ALK PHOS 53 U/L (45-117); BILIRUBIN,TOTAL 0.2 mg/dL (0.2-1.0); CREATININE 0.8 mg/dL (0.55-1.02); SGPT/ALT 22 U/L (12-78); TOT PROT 6.3 g/dl (6.4-8.2)
--- NOTE | 2016-08-18 08:21 | PN ---
Physical Exam: SUBJECTIVE: Patient seen and examined feels better since admission. still has intermittent productive cough with thick sputum denies chest pain, sob, abdominal pain, diarrhea/dysuria. OBJECTIVE: Vital Signs Period Temp Pulse Resp BP Sys/Pearl Pulse Ox Last 24 Hr 98.3 F-101.3 F 92-119 20-22 113-135/62-85 95-98 GENERAL: The patient is awake, alert, and fully oriented, in no acute distress. HEAD: Normal with no signs of trauma. EYES: PERRL, extraocular movements intact, sclera anicteric, conjunctiva clear. No ptosis. ENT: Ears normal, nares patent with nasal cannula in place, oropharynx clear without exudates, moist mucous membranes. NECK: Trachea midline, full range of motion, supple. no thyromegaly, no LAD LUNGS: Breath sounds with scattered wheezing throughout, L>R HEART: Regular rate and rhythm, S1, S2 without murmur, rub or gallop. ABDOMEN: Soft, nontender, nondistended, normoactive bowel sounds, no guarding, no rebound, EXTREMITIES: 2+ pulses, warm, well-perfused, no edema. Laboratory Results - last 24 hr 08/17/16 08/17/16 08/17/16 07:00 07:00 07:00 WBC 24.3 H D RBC 4.55 Hgb 13.5 Hct 41.0 MCV 90.1 MCHC 32.9 RDW 12.9 Plt Count 226 MPV 9.3 Neutrophils % 92.0 H Lymphocytes % 1.0 L D Monocytes % 2.0 L Band Neutrophils 5.0 Platelet Estimate Adequate Platelet Comment No clotting detected RBC Morphology Appears normal Sodium 141 Potassium 3.2 L Chloride 103 Carbon Dioxide 20 L D Anion Gap 18 H BUN 10 Creatinine 1.1 H D Creat Clearance w eGFR 48.96 POC Glucometer Random Glucose 203 H D Lactic Acid Calcium 9.0 Phosphorus Magnesium 2.3 Total Bilirubin 0.4 D AST 22 ALT 21 Alkaline Phosphatase 67 D Total Protein 7.5 Albumin 3.9 Triglycerides 39 Cholesterol 267 H Total LDL Cholesterol 169 H HDL Cholesterol 96 H 08/17/16 08/17/16 08/17/16 07:00 11:30 11:55 WBC RBC Hgb Hct MCV MCHC RDW Plt Count MPV Neutrophils % Lymphocytes % Monocytes % Band Neutrophils Platelet Estimate Platelet Comment RBC Morphology Sodium Potassium Chloride Carbon Dioxide Anion Gap BUN Creatinine Creat Clearance w eGFR POC Glucometer 226.88191 Random Glucose Lactic Acid 6.035 H* 3.342 H* Calcium Phosphorus Magnesium Total Bilirubin AST ALT Alkaline Phosphatase Total Protein Albumin Triglycerides Cholesterol Total LDL Cholesterol HDL Cholesterol 08/17/16 08/17/16 08/18/16 16:01 22:10 05:20 WBC 24.4 H RBC 4.14 Hgb 12.2 Hct 37.0 MCV 89.2 MCHC 33.1 RDW 13.0 Plt Count 226 MPV 9.2 Neutrophils % Y Lymphocytes % Y Monocytes % Band Neutrophils Platelet Estimate Platelet Comment RBC Morphology Sodium Potassium Chloride Carbon Dioxide Anion Gap BUN Creatinine Creat Clearance w eGFR POC Glucometer 238.24989 228.24669 Random Glucose Lactic Acid Calcium Phosphorus Magnesium Total Bilirubin AST ALT Alkaline Phosphatase Total Protein Albumin Triglycerides Cholesterol Total LDL Cholesterol HDL Cholesterol 08/18/16 08/18/16 05:20 05:20 WBC RBC Hgb Hct MCV MCHC RDW Plt Count MPV Neutrophils % Lymphocytes % Monocytes % Band Neutrophils Platelet Estimate Platelet Comment RBC Morphology Sodium 143 Potassium 3.7 Chloride 106 Carbon Dioxide 28 D Anion Gap 9 BUN 14 D Creatinine 0.8 D Creat Clearance w eGFR > 60 POC Glucometer Random Glucose 191 H Lactic Acid 1.358 Calcium 9.0 Phosphorus 2.6 Magnesium 2.3 Total Bilirubin 0.2 D AST 29 D ALT 22 Alkaline Phosphatase 53 D Total Protein 6.3 L Albumin 3.1 L D Triglycerides Cholesterol Total LDL Cholesterol HDL Cholesterol Active Medications Generic Name Dose Route Start Last Admin Trade Name Freq PRN Reason Stop Dose Admin Acetaminophen 650 mg 08/17/16 11:17 08/17/16 20:17 Tylenol - PO 650 mg Q6H PRN Administration FEVER OR PAIN Albuterol Sulfate 1 amp 08/17/16 11:17 Ventolin 0.042trength) - NEB Q4H PRN ASTHMA Albuterol/Ipratropium 1 amp 08/17/16 12:00 08/18/16 06:09 Duoneb - NEB 1 amp QIDR GIACOMO Administration Cefepime HCl 1 gm 08/17/16 10:18 08/18/16 01:23 Maxipime 1gm Ivpb Pre-Docked IVPB 1 gm Q8H-IV GIACOMO Administration Enoxaparin Sodium 40 mg 08/18/16 10:00 Lovenox - SQ DAILY GIACOMO Azithromycin 250 mls @ 250 mls/hr 08/18/16 10:00 Zithromax 500mg Ivpb (Pre-Docked) IVPB DAILY [facility] Insulin Aspart 1 vial 08/17/16 16:30 08/18/16 06:13 Novolog Vial Sliding Scale - SQ 2 units ACHS GIAOCMO Administration Protocol Methylprednisolone Sodium Succinate 60 mg 08/17/16 14:00 08/18/16 05:15 Solu-Medrol - IVPB 60 mg TID GIACOMO Administration Oseltamivir Phosphate 75 mg 08/17/16 22:00 08/17/16 21:28 Tamiflu - PO 08/22/16 09:59 75 mg BID GIACOMO Administration ASSESSMENT/PLAN: 71 yr old woman prediabetes, asthma, vertigo, presented to ED with SOB for 1 week admitted to ICU for sepsis secondary to CAP and acute hypoxic respiratory failure. - [id number] - 1, however patient was septic on presentation and failed outpatient therapy, was on 7-day course of levofloxacin 500mg Jul 25 for similar symptoms #Sepsis secondary to CAP(elevated leucocytosis, cxy with infiltrates, fever, NICHOLE ) - Azithromax 500mg qdaily - tamiflu 75mg po BID - cefepime 1gm q8hr - lactic acid cleared - leucocytosis trending up - will monitor(infectious vs reactive to steriods, clinically improving), maintain antibiotics - influenza swab neg, bld cx NGTD, sputum with normal anay, legionella and strep pneumo negative #Asthma - acute hypoxic respiratory failure - solumedrol 60mg IVPB TID - venotin and duonebs PRN - nasal cannula 2lpm continous #Pre-diabetic - BGM ACHS - NISS - metformin held due to NICHOLE #HTN - patient denies hx or home medications, [facility] does not have precription for anti-hypertensives - likely elevated due to steriod. albuterol use, will continue to monitor #Vertigo - asymptomatic - uses meclezine 12.51 tab TID, will add if symptomatic #DVT - lovenox #Diet - diabetic diet Visit type - Emergency Visit Emergency Visit: No - New Patient This patient is new to me today: No - Critical Care Critical Care patient: Yes Total Critical Care Time (in minutes): 35 Critical Care Statement: The care of this patient involved high complexity decision making to prevent further life threatening deterioration of the patient 's condition and/or to evalute & treat vital organ system(s) failure or risk of failure.
[2016-08-18] MEDS ORDERED: PT OWN MED DRAWER 7, Y5N ONE ×2 (09:30→22:42)
[2016-08-18] MEDS: OSELTAMIVIR PHOSPHATE 75 MG CAPSULE PO SCH ×2 (09:34→22:00)
--- NOTE | 2016-08-18 09:34 | PN ---
Progress Note (short form) - Note Progress Note: PULMONARY / CRITICAL CARE PROGRESS NOTE: Pt seen and examined in the ICU EVENTS: Lactate cleared, she states that she feels much better but still tight on my exam, no distress however Current Medications Acetaminophen (Tylenol -) 650 mg PO Q6H PRN PRN Reason: FEVER OR PAIN Last Admin: 08/17/16 20:17 Dose: 650 mg Albuterol Sulfate (Ventolin 0.042trength) -) 1 amp NEB Q4H PRN PRN Reason: ASTHMA Albuterol/Ipratropium (Duoneb -) 1 amp NEB QIDR GIACOMO Last Admin: 08/18/16 06:09 Dose: 1 amp Cefepime HCl (Maxipime 1gm Ivpb Pre-Docked) 1 gm IVPB Q8H-IV GIACOMO Last Admin: 08/18/16 01:23 Dose: 1 gm Enoxaparin Sodium (Lovenox -) 40 mg SQ DAILY [facility] Azithromycin (Zithromax 500mg Ivpb (Pre-Docked)) 250 mls @ 250 mls/hr IVPB DAILY [facility] Insulin Aspart (Novolog Vial Sliding Scale -) 1 vial SQ ACHS GIACOMO PRN Reason: Protocol Last Admin: 08/18/16 06:13 Dose: 2 units Methylprednisolone Sodium Succinate (Solu-Medrol -) 60 mg IVPB TID [facility] Last Admin: 08/18/16 05:15 Dose: 60 mg Oseltamivir Phosphate (Tamiflu -) 75 mg PO BID [facility] Stop: 08/22/16 09:59 Last Admin: 08/17/16 21:28 Dose: 75 mg Vital Signs Temp 98.4 F 08/18/16 06:00 Pulse 102 H 08/18/16 08:00 Resp 20 08/18/16 08:00 BP 120/63 08/18/16 08:00 Pulse Ox 99 08/18/16 09:00 Intake & Output 08/17/16 08/18/16 08/18/16 18:59 06:59 18:59 Intake Total 1630 500 Output Total 1300 850 Balance 330 -350 Weight 70.896 kg Intake: IVPB 400 100 Oral 1230 400 Output: Urine 1300 850 Void 1300 850 Other: Voiding Method Bedpan Bedpan Bedpan # Unmeasured Voids Straight Cath 2 Void 1 Bowel Movement Yes: MOD BROWN FORMED STOOL X1 # Bowel Movements 1 [facility]: Neuro: alert HENNT: PERRL Lungs: tight, insp/exp wheeze Heart: RRR Abd: soft Ext: no edema, warm Skin: warm, dry CBC, BMP 08/18/16 05:20 08/18/16 05:20 Microbiology 08/17/16 00:43 Blood Culture - Preliminary Blood - Peripheral Venous NO GROWTH OBTAINED AFTER 24 HOURS, INCUBATION TO CONTINUE FOR 4 DAYS. 08/17/16 00:43 Blood Culture - Preliminary Blood - Peripheral Venous NO GROWTH OBTAINED AFTER 24 HOURS, INCUBATION TO CONTINUE FOR 4 DAYS. 08/17/16 06:30 Gram Stain - Final Sputum - Expectorated 08/17/16 09:15 Legionella Antigen - Final Urine For Antigen Detection Streptococcus pneumoniae Antigen (M - Final Imaging - Results Chest X-ray: Image Reviewed (08/17: Clear (My Read)) EKG: Image Reviewed (08/17: S-Tach in the 120's w/o ectopy, normal axis, no ST aberrations, QTc = 453ms, no acute process (My Read)) Problem List - Problems (1) Pneumonia Code(s): J18.9 - PNEUMONIA, UNSPECIFIED ORGANISM (2) Asthma Code(s): J45.909 - UNSPECIFIED ASTHMA, UNCOMPLICATED (3) Diabetes mellitus Code(s): E11.9 - TYPE 2 DIABETES MELLITUS WITHOUT COMPLICATIONS Assessment/Plan ASSESS: this is a 71 y/o woman w/ asthma & DM who presents now w/ PNA in the setting of URI exposure. PLAN: -Supp FiO2 prn for an SpO2 > 92% -Nebs -Cont Steroids at current dose - would not wean yet as she is still tight -Consider Bi-Level as needed -ABX per ID (Cefe/Azith/Tamiflu) -FSs -Insulin prn -Diabetic Diet -NO Metformin - Lactic acidosis -BR -Lovenox -SCDs Continue to monitor in the ICU today - can transition to the floor if stable tomorrow Critically Ill 35min Shaheed Anderson Pulm/CC [employer]
[2016-08-18] MEDS ORDERED: ENOXAPARIN NA (PORCINE) 40 MG/0.4 ML DISP.SYRIN SQ SCH (10:00)
[2016-08-18] MEDS ORDERED: AZITHROMYCIN IVPB 250 ML IVPB SCH (10:00)
--- NOTE | 2016-08-18 10:22 | PN ---
Progress Note, Physician History of Present Illness: Awake and alert OOB in chair Still with cough No c/o chest pain/ dyspnea No c/o bodyache Febrile overnight Tolerated cephalosporin without adverse rxn WBC remains elevated CXR no obvious infiltrate - Current Medication List Current Medications: Active Medications Acetaminophen (Tylenol -) 650 mg PO Q6H PRN PRN Reason: FEVER OR PAIN Last Admin: 08/17/16 20:17 Dose: 650 mg Albuterol Sulfate (Ventolin 0.042trength) -) 1 amp NEB Q4H PRN PRN Reason: ASTHMA Albuterol/Ipratropium (Duoneb -) 1 amp NEB QIDR [facility] Last Admin: 08/18/16 06:09 Dose: 1 amp Cefepime HCl (Maxipime 1gm Ivpb Pre-Docked) 1 gm IVPB Q8H-IV [facility] Last Admin: 08/18/16 09:33 Dose: 1 gm Enoxaparin Sodium (Lovenox -) 40 mg SQ DAILY [facility] Last Admin: 08/18/16 09:34 Dose: 40 mg Azithromycin (Zithromax 500mg Ivpb (Pre-Docked)) 250 mls @ 250 mls/hr IVPB DAILY [facility] Last Admin: 08/18/16 09:33 Dose: 250 mls/hr Insulin Aspart (Novolog Vial Sliding Scale -) 1 vial SQ ACHS [facility] PRN Reason: Protocol Last Admin: 08/18/16 06:13 Dose: 2 units Methylprednisolone Sodium Succinate (Solu-Medrol -) 60 mg IVPB TID [facility] Last Admin: 08/18/16 05:15 Dose: 60 mg Oseltamivir Phosphate (Tamiflu -) 75 mg PO BID [facility] Stop: 08/22/16 09:59 Last Admin: 08/18/16 09:34 Dose: 75 mg - Objective Vital Signs: Vital Signs Temperature 98.4 F 08/18/16 06:00 Pulse Rate 102 H 08/18/16 08:00 Respiratory Rate 20 08/18/16 08:00 Blood Pressure 120/63 08/18/16 08:00 O2 Sat by Pulse Oximetry (%) 99 08/18/16 09:00 Constitutional: Yes: No Distress Eyes: Yes: Conjunctiva Clear Cardiovascular: Yes: Regular Rate and Rhythm, S1, S2 Respiratory: Yes: Rales, Rhonchi, Other (+ bilateral rhonchi, basilar crepitations) Gastrointestinal: Yes: Normal Bowel Sounds, Soft. No: Tenderness Edema: Yes Edema: LLE: 1+, RLE: 1+ Labs: CBC, BMP 08/18/16 05:20 08/18/16 05:20 Assessment/Plan Sepsis, secondary to pulmonary source Possible pneumona v. viral syndrome (influenza) Fever/ leukocytosis Exacerbation COPD PCN allergy Await cultures Continue empiric zithromax/ cefepime/ Tamiflu Steroids, bronchodilators
[2016-08-18] MEDS: ACETAMINOPHEN 325 MG TABLET (FP) PO PRN (13:47)
[2016-08-18] MEDS ORDERED: ALBUTEROL SO4 0.042% IH SOL 1.25 MG/3 ML VIAL.NEB NEB PRN (16:22)
[2016-08-18] MEDS ORDERED: ACETAMINOPHEN 325 MG TABLET (FP) PO PRN (16:22)
--- NOTE | 2016-08-18 16:23 | PN ---
Teaching Attending Note Name of Resident: Carmen Edwards ATTENDING PHYSICIAN STATEMENT I saw and evaluated the patient. I reviewed the resident's note and discussed the case with the resident. I agree with the resident's findings and plan as documented. SUBJECTIVE: in ICU Patient is comfortable doing 100% better , stated that she feels 100% better. OBJECTIVE: Vital Signs Temperature 99 F 08/18/16 10:00 Pulse Rate 98 H 08/18/16 12:00 Respiratory Rate 22 08/18/16 12:00 Blood Pressure 116/82 08/18/16 12:00 O2 Sat by Pulse Oximetry (%) 100 08/18/16 11:24 GENERAL: The patient is awake, alert, and fully oriented, in no acute distress. HEAD: Normal with no signs of trauma. EYES: PERRL, extraocular movements intact, sclera anicteric, conjunctiva clear. No ptosis. ENT: Ears normal, nares patent, oropharynx clear without exudates, moist mucous membranes. NECK: Trachea midline, full range of motion, supple. LUNGS: positive for scattered wheezing bl,GAE BL , no accessory muscle use. HEART: RRR, S1, S2 without murmur, rub or gallop. ABDOMEN: Soft, nontender, nondistended, normoactive bowel sounds, no guarding, no rebound, no hepatosplenomegaly, no masses. EXTREMITIES: 2+ pulses, warm, well-perfused, no edema. NEUROLOGICAL: Cranial nerves II through XII grossly intact. Normal speech, gait not observed. PSYCH: Normal mood, normal affect. SKIN: Warm to touch , dry, normal turgor, no rashes or lesions noted CBCD WBC 24.4 K/mm3 (4.0-10.0) H 08/18/16 05:20 RBC 4.14 M/mm3 (3.60-5.2) 08/18/16 05:20 Hgb 12.2 GM/dL (10.7-15.3) 08/18/16 05:20 Hct 37.0 % (32.4-45.2) 08/18/16 05:20 MCV 89.2 fl (80-96) 08/18/16 05:20 MCHC 33.1 g/dl (32.0-36.0) 08/18/16 05:20 RDW 13.0 % (11.6-15.6) 08/18/16 05:20 Plt Count 226 K/MM3 (134-434) 08/18/16 05:20 MPV 9.2 fl (7.5-11.1) 08/18/16 05:20 CMP Sodium 143 mmol/L (136-145) 08/18/16 05:20 Potassium 3.7 mmol/L (3.5-5.1) 08/18/16 05:20 Chloride 106 mmol/L (98-107) 08/18/16 05:20 Carbon Dioxide 28 mmol/L (21-32) D 08/18/16 05:20 Anion Gap 9 (8-16) 08/18/16 05:20 BUN 14 mg/dL (7-18) D 08/18/16 05:20 Creatinine 0.8 mg/dL (0.55-1.02) D 08/18/16 05:20 Creat Clearance w eGFR > 60 (>60) 08/18/16 05:20 Random Glucose 191 mg/dL (74-106) H 08/18/16 05:20 Calcium 9.0 mg/dL (8.5-10.1) 08/18/16 05:20 Total Bilirubin 0.2 mg/dL (0.2-1.0) D 08/18/16 05:20 AST 29 U/L (15-37) D 08/18/16 05:20 ALT 22 U/L (12-78) 08/18/16 05:20 Alkaline Phosphatase 53 U/L (45-117) D 08/18/16 05:20 Total Protein 6.3 g/dl (6.4-8.2) L 08/18/16 05:20 Albumin 3.1 g/dl (3.4-5.0) L D 08/18/16 05:20 CARDIAC ENZYMES Creatine Kinase 270 IU/L (26-192) H 08/17/16 00:43 Troponin I < 0.02 ng/ml (0.00-0.05) 08/17/16 00:43 Current Medications Generic Name Dose Route Start Last Admin Trade Name Freq PRN Reason Stop Dose Admin Acetaminophen 650 mg 08/17/16 11:17 08/18/16 13:47 Tylenol - PO 650 mg Q6H PRN Administration FEVER OR PAIN Albuterol Sulfate 1 amp 08/17/16 11:17 Ventolin 0.042trength) - NEB Q4H PRN ASTHMA Albuterol/Ipratropium 1 amp 08/17/16 12:00 08/18/16 11:24 Duoneb - NEB 1 amp QIDR [facility] Administration Cefepime HCl 1 gm 08/17/16 10:18 08/18/16 09:33 Maxipime 1gm Ivpb Pre-Docked IVPB 1 gm Q8H-IV [facility] Administration Enoxaparin Sodium 40 mg 08/18/16 10:00 08/18/16 09:34 Lovenox - SQ 40 mg DAILY [facility] Administration Azithromycin 250 mls @ 250 mls/hr 08/18/16 10:00 08/18/16 09:33 Zithromax 500mg Ivpb (Pre-Docked) IVPB 250 mls/hr DAILY [facility] Administration Insulin Aspart 1 vial 08/17/16 16:30 08/18/16 12:49 Novolog Vial Sliding Scale - SQ 6 units ACHS [facility] Administration Protocol Methylprednisolone Sodium Succinate 60 mg 08/17/16 14:00 08/18/16 13:47 Solu-Medrol - IVPB 60 mg TID [facility] Administration Oseltamivir Phosphate 75 mg 08/17/16 22:00 08/18/16 09:34 Tamiflu - PO 08/22/16 09:59 75 mg BID [facility] Administration Home Medications Medication Instructions Recorded Metformin HCl [Glucophage] 1,000 mg PO DAILY 08/17/16 ASSESSMENT AND PLAN: The patient is a 71 year old female being admitted for shortness of breath who presented to the emergency department with wheezing, shortness of breath, and chest discomfort # s/p Sepsis with Lactic acid level of 6.0--dropped to 1.31 ;no fever today , leukocytosis continues due to Influenza/Pneumonia and also patient is on steroid ID consulted # Acute Lactic acidosis improved from 6.0-1.3 today. # Possible Influenza, on empirice Tamiflu will continue since patient is doing better. quick swab is negative for now, culture was send out pending. Droplet precaution continue . # Pneumonia(CAP) On IV rocephin/zithromax continue, will give her one dose of Vancomycin discussed with ID, Pulmonary consult appreciated # Acute Asthma exacerabtion ; On duoneb tx, Steroids IV 60mg q8h continue # Hx of T2DM on metformin will hold off for now. SS with coverage will transfer the patient out of ICU to med surg floor.
[2016-08-18] MEDS ORDERED: ALBUTEROL SO4 2.5/IPRATROPIUM 0.5 INH SOL 3 ML VIAL.NEB. NEB ONE (16:51)
--- NOTE | 2016-08-18 21:35 | EKG ---
Test Reason : Blood Pressure : / mmHG Vent. Rate : 107 BPM Atrial Rate : 107 BPM P-R Int : 154 ms QRS Dur : 076 ms QT Int : 310 ms P-R-T Axes : 069 038 027 degrees QTc Int : 413 ms SINUS TACHYCARDIA WITH PREMATURE ATRIAL COMPLEXES ABNORMAL EKG WHEN COMPARED WITH ECG OF 17-AUG-2016 00:02, NO SIGNIFICANT CHANGE WAS FOUND Confirmed by CARLA ZARATE MD ([id number]) on 08/18/2016 9:35:22 PM Referred By: Giovani DURHAM Confirmed By:ACRLA ZARATE MD
[2016-08-19] MEDS: CEFEPIME 1 GM/100 ML BAG PRE-DOCKED IVPB SCH (01:57)
[2016-08-19] MEDS: INSULIN SLIDING SCALE (NOVOLOG) 1 VIAL SQ SCH ×4 (06:12→21:07)
[2016-08-19] MEDS: methylPREDNISolone NA SUCC 125 MG/2 ML VIAL IVPB SCH (06:12)
[2016-08-19 06:27] LABS: CALCIUM 8.8 mg/dL (8.5-10.1)
[2016-08-19 06:28] LABS: CREATININE 0.8 mg/dL (0.55-1.02)
[2016-08-19 06:30] LABS: BASOPHIL 0.2 % (0-2.0); MCH 29.9 pg (25.7-33.7); MCHC 33.3 g/dl (32.0-36.0); MEAN CELL VOLUME 89.8 fl (80-96); MEAN PLT VOLUME 9.7 fl (7.5-11.1); NEUTROPHILS 93.4 % (42.8-82.8); PLATELET COUNT 236 K/MM3 (134-434); RDW 13.5 % (11.6-15.6); WHITE BLOOD COUNT 23.5 K/mm3 (4.0-10.0)
[2016-08-19] MEDS: ALBUTEROL SO4 2.5/IPRATROPIUM 0.5 INH SOL 3 ML VIAL.NEB. NEB SCH ×4 (06:30→23:45)
--- NOTE | 2016-08-19 07:45 | PN ---
Progress Note, Physician Chief Complaint: ID ICU follow up for this 71 year old asthmatic quite ill on admission with SOB fevr couph body aches though to have the flu. Oseltamavir given Cefepime Feels better today ? steroid effect. - Current Medication List Current Medications: Active Medications Acetaminophen (Tylenol -) 650 mg PO Q6H PRN PRN Reason: FEVER OR PAIN Last Admin: 08/19/16 03:49 Dose: 650 mg Albuterol Sulfate (Ventolin 0.042trength) -) 1 amp NEB Q4H PRN PRN Reason: ASTHMA Albuterol/Ipratropium (Duoneb -) 1 amp NEB QIDR [facility] Last Admin: 08/19/16 06:30 Dose: 1 amp Cefepime HCl (Maxipime 1gm Ivpb Pre-Docked) 1 gm IVPB Q8H-IV [facility] Last Admin: 08/19/16 01:57 Dose: 1 gm Enoxaparin Sodium (Lovenox -) 40 mg SQ DAILY [facility] Azithromycin (Zithromax 500mg Ivpb (Pre-Docked)) 250 mls @ 250 mls/hr IVPB DAILY [facility] Insulin Aspart (Novolog Vial Sliding Scale -) 1 vial SQ ACHS [facility] PRN Reason: Protocol Last Admin: 08/19/16 06:12 Dose: 6 units Methylprednisolone Sodium Succinate (Solu-Medrol -) 60 mg IVPB TID [facility] Last Admin: 08/19/16 06:12 Dose: 60 mg Oseltamivir Phosphate (Tamiflu -) 75 mg PO BID [facility] Stop: 08/22/16 09:59 Last Admin: 08/18/16 22:00 Dose: 75 mg - Objective Vital Signs: Vital Signs Temperature 98.4 F 08/19/16 06:00 Pulse Rate 91 H 08/19/16 06:00 Respiratory Rate 18 08/19/16 06:00 Blood Pressure 117/69 08/19/16 06:00 O2 Sat by Pulse Oximetry (%) 100 08/18/16 21:00 Constitutional: Yes: Well Nourished, No Distress HENT: Yes: WNL, Atraumatic Neck: Yes: WNL, Supple Cardiovascular: Yes: Regular Rate and Rhythm, S1, S2. No: Murmur, Rub Respiratory: Yes: WNL, Regular, CTA Bilaterally, Rhonchi. No: Rales, SOB on Exertion, Wheezes Gastrointestinal: Yes: WNL, Normal Bowel Sounds, Soft. No: Splenomegaly, Tenderness, Tenderness, Rebound Extremities: No: Cold, Cool, Cyanosis Edema: No Labs: CBC, BMP 08/19/16 05:05 08/19/16 05:05 Problem List - Problems (1) Asthma Code(s): J45.909 - UNSPECIFIED ASTHMA, UNCOMPLICATED (2) Diabetes mellitus Code(s): E11.9 - TYPE 2 DIABETES MELLITUS WITHOUT COMPLICATIONS (3) Pneumonia Code(s): J18.9 - PNEUMONIA, UNSPECIFIED ORGANISM Assessment/Plan Microbiology 08/17/16 09:15 Urine For Antigen Detection Legionella Antigen - Final 08/17/16 09:15 Urine For Antigen Detection Streptococcus pneumoniae Antigen (M - Final 08/17/16 06:30 Sputum - Expectorated Gram Stain - Final 08/17/16 00:34 Nasopharyngeal Swab Influenza Types A,B Antigen (IKER) - Final 08/17/16 00:34 Nasopharyngeal Swab - Final 08/17/16 06:30 Sputum - Expectorated Sputum Culture - Preliminary NORMAL RESPIRATORY [facility] Laboratory Tests 08/18/16 08/19/16 08/19/16 05:20 05:05 05:05 WBC 23.5 H Hgb 12.2 Hct 36.6 Plt Count 236 Neutrophils % 93.4 H BUN 19 H D Creatinine 0.8 Lactic Acid 1.358 Assessment Exacerbation of asthma quite ill originally severe hypoxemia Diabetes Upper respiratory tract infection working diagnosis is Influenza Plan Substitute Ceftriaxone Procalcitonin level would be helpful hypothetically Oseltamvir Isolated Influenza viral culture will be checked Discussed with JAYLEN Cassidy MD
[2016-08-19 08:39] LABS: C-REACTIVE PROTEIN 4.8 MG/DL (0.00-0.3)
[2016-08-19] MEDS ORDERED: PT OWN MED DRAWER 7, Y5N ONE ×3 (08:45→21:02)
[2016-08-19] MEDS: AZITHROMYCIN IVPB 250 ML IVPB SCH (09:38)
[2016-08-19] MEDS: OSELTAMIVIR PHOSPHATE 75 MG CAPSULE PO SCH ×2 (09:39→21:07)
[2016-08-19] MEDS: CEFTRIAXONE 50 ML IVPB SCH (09:39)
[2016-08-19] MEDS: ENOXAPARIN NA (PORCINE) 40 MG/0.4 ML DISP.SYRIN SQ SCH (09:39)
--- NOTE | 2016-08-19 12:57 | PN ---
Teaching Attending Note Name of Resident: Twin Mendez ATTENDING PHYSICIAN STATEMENT I saw and evaluated the patient. I reviewed the resident's note and discussed the case with the resident. I agree with the resident's findings and plan as documented. SUBJECTIVE: Patient seen and examined in the ICU. Awake and alert. Breathing and body aches are improving. Still with some congested cough. Intake & Output 08/16/16 08/17/16 08/18/16 08/19/16 23:59 23:59 23:59 23:59 Intake Total 2955 1850 300 Output Total 2050 300 200 Balance 905 1550 100 Weight 150 lb 157 lb 9.6 oz 156 lb 4.8 oz 158 lb 11.2 oz Last Vital Signs Temp Pulse Resp BP Pulse Ox 98.6 F 92 H 18 112/53 99 08/19/16 10:00 08/19/16 12:00 08/19/16 12:00 08/19/16 12:00 08/19/16 10:20 Active Medications Acetaminophen (Tylenol -) 650 mg PO Q6H PRN PRN Reason: FEVER OR PAIN Last Admin: 08/19/16 03:49 Dose: 650 mg Albuterol Sulfate (Ventolin 0.042trength) -) 1 amp NEB Q4H PRN PRN Reason: ASTHMA Albuterol/Ipratropium (Duoneb -) 1 amp NEB QIDR [facility] Last Admin: 08/19/16 11:25 Dose: 1 amp Enoxaparin Sodium (Lovenox -) 40 mg SQ DAILY [facility] Last Admin: 08/19/16 09:39 Dose: 40 mg Azithromycin (Zithromax 500mg Ivpb (Pre-Docked)) 250 mls @ 250 mls/hr IVPB DAILY [facility] Last Admin: 08/19/16 09:38 Dose: 250 mls/hr Ceftriaxone Sodium (Rocephin 1gm Ivpb (Pre-Docked)) 50 mls @ 100 mls/hr IVPB DAILY [facility] Last Admin: 08/19/16 09:39 Dose: 100 mls/hr Insulin Aspart (Novolog Vial Sliding Scale -) 1 vial SQ ACHS [facility] PRN Reason: Protocol Last Admin: 08/19/16 12:18 Dose: 4 units Methylprednisolone Sodium Succinate (Solu-Medrol -) 40 mg IVPB Q8H-IV [facility] Oseltamivir Phosphate (Tamiflu -) 75 mg PO BID [facility] Stop: 08/22/16 09:59 Last Admin: 08/19/16 09:39 Dose: 75 mg GENERAL: awake, alert, and oriented, NAD. HEAD: Normal with no signs of trauma. EYES: sclera anicteric, conjunctiva clear. ENT: clear without exudates, moist mucous membranes. NECK: Trachea midline, full range of motion, supple. LUNGS: (+) scattered expiratory wheezing, no accessory muscle use. HEART: RRR, S1, S2 without murmur, rub or gallop. ABDOMEN: Soft, nontender, nondistended, normoactive bowel sounds, no guarding, no rebound, no hepatosplenomegaly, no masses. EXTREMITIES: 2+ pulses, warm, well-perfused, no edema. NEUROLOGICAL: Non-focal PSYCH: Normal mood, normal affect. SKIN: Warm to touch , dry, normal turgor, no rashes or lesions noted Laboratory Results - last 24 hr 08/18/16 08/18/16 08/19/16 16:34 22:56 05:05 WBC 23.5 H RBC 4.08 Hgb 12.2 Hct 36.6 MCV 89.8 MCHC 33.3 RDW 13.5 Plt Count 236 MPV 9.7 Neutrophils % 93.4 H Lymphocytes % 3.7 L D Monocytes % 2.7 L Eosinophils % 0.0 D Basophils % 0.2 Sodium Potassium Chloride Carbon Dioxide Anion Gap BUN Creatinine POC Glucometer 230.84347 231.25758 Random Glucose Calcium C-Reactive Protein 08/19/16 08/19/16 08/19/16 05:05 05:05 05:47 WBC RBC Hgb Hct MCV MCHC RDW Plt Count MPV Neutrophils % Lymphocytes % Monocytes % Eosinophils % Basophils % Sodium 142 Potassium 3.8 Chloride 105 Carbon Dioxide 26 Anion Gap 11 BUN 19 H D Creatinine 0.8 POC Glucometer 260.50617 Random Glucose 238 H D Calcium 8.8 C-Reactive Protein 4.8 H Cancelled Problem List - Problems (1) Pneumonia Code(s): J18.9 - PNEUMONIA, UNSPECIFIED ORGANISM (2) Asthma Code(s): J45.909 - UNSPECIFIED ASTHMA, UNCOMPLICATED (3) Diabetes mellitus Code(s): E11.9 - TYPE 2 DIABETES MELLITUS WITHOUT COMPLICATIONS Assessment/Plan -Supp FiO2 for SpO2 >92% -BD TX -Cont Steroids at current dose - would not wean yet as she is still tight -ABX per ID -Tamiflu -Glycemic control -Lovenox -PO as tolerated -Floor Dr Stiles CCTime 35"
--- NOTE | 2016-08-19 14:12 | PN ---
Physical Exam: SUBJECTIVE: Patient seen and examined. continues to feel better. cough improved, now intermittent, slept well last night. sputum is now thicker but with less amount. able to ambulate/eat/toilet without difficulty. denies chest pain, abdominal pain. OBJECTIVE: Vital Signs Period Temp Pulse Resp BP Sys/Pearl Pulse Ox Last 24 Hr 98.4 F-99 F 78-112 18-20 112-154/53-90 99-100 GENERAL: The patient is awake, alert, and fully oriented, in no acute distress. HEAD: Normal with no signs of trauma. EYES: PERRL, extraocular movements intact, sclera anicteric, conjunctiva clear. No ptosis. ENT: Ears normal, nares patent, oropharynx clear without exudates, moist mucous membranes. NECK: Trachea midline, full range of motion, supple. LUNGS: Breath sounds equal, clear to auscultation bilaterally, no wheezes, no crackles, no accessory muscle use. HEART: Regular rate and rhythm, S1, S2 without murmur, rub or gallop. ABDOMEN: Soft, nontender, nondistended, normoactive bowel sounds, no guarding, no rebound, no hepatosplenomegaly, no masses. EXTREMITIES: 2+ pulses, warm, well-perfused, no edema. NEUROLOGICAL: Cranial nerves II through XII grossly intact. Normal speech, gait not observed. PSYCH: Normal mood, normal affect. SKIN: Warm, dry, normal turgor, no rashes or lesions noted Laboratory Results - last 24 hr 08/18/16 08/18/16 08/19/16 16:34 22:56 05:05 WBC 23.5 H RBC 4.08 Hgb 12.2 Hct 36.6 MCV 89.8 MCHC 33.3 RDW 13.5 Plt Count 236 MPV 9.7 Neutrophils % 93.4 H Lymphocytes % 3.7 L D Monocytes % 2.7 L Eosinophils % 0.0 D Basophils % 0.2 Sodium Potassium Chloride Carbon Dioxide Anion Gap BUN Creatinine POC Glucometer 230.11849 231.28882 Random Glucose Calcium C-Reactive Protein 08/19/16 08/19/16 08/19/16 05:05 05:05 05:47 WBC RBC Hgb Hct MCV MCHC RDW Plt Count MPV Neutrophils % Lymphocytes % Monocytes % Eosinophils % Basophils % Sodium 142 Potassium 3.8 Chloride 105 Carbon Dioxide 26 Anion Gap 11 BUN 19 H D Creatinine 0.8 POC Glucometer [phone] Random Glucose 238 H D Calcium 8.8 C-Reactive Protein 4.8 H Cancelled Active Medications Generic Name Dose Route Start Last Admin Trade Name Freq PRN Reason Stop Dose Admin Acetaminophen 650 mg 08/18/16 16:22 08/19/16 03:49 Tylenol - PO 650 mg Q6H PRN Administration FEVER OR PAIN Albuterol Sulfate 1 amp 08/18/16 16:22 Ventolin 0.042trength) - NEB Q4H PRN ASTHMA Albuterol/Ipratropium 1 amp 08/18/16 18:00 08/19/16 11:25 Duoneb - NEB 1 amp QIDR [facility] Administration Enoxaparin Sodium 40 mg 08/19/16 10:00 08/19/16 09:39 Lovenox - SQ 40 mg DAILY [facility] Administration Azithromycin 250 mls @ 250 mls/hr 08/19/16 10:00 08/19/16 09:38 Zithromax 500mg Ivpb (Pre-Docked) IVPB 250 mls/hr DAILY [facility] Administration Ceftriaxone Sodium 50 mls @ 100 mls/hr 08/19/16 10:00 08/19/16 09:39 Rocephin 1gm Ivpb (Pre-Docked) IVPB 100 mls/hr DAILY [facility] Administration Insulin Aspart 1 vial 08/18/16 16:30 08/19/16 12:18 Novolog Vial Sliding Scale - SQ 4 units ACHS [facility] Administration Protocol Methylprednisolone Sodium Succinate 40 mg 08/19/16 18:00 Solu-Medrol - IVPB Q8H-IV [facility] Oseltamivir Phosphate 75 mg 08/18/16 22:00 08/19/16 09:39 Tamiflu - PO 08/22/16 09:59 75 mg BID [facility] Administration ASSESSMENT/PLAN: 71 yr old woman prediabetes, asthma, vertigo, presented to ED with SOB for 1 week admitted to ICU for sepsis secondary to CAP and acute hypoxic respiratory failure. - stable to transfer out of ICU to isolated room on med-surg floor. #Sepsis secondary to CAP(elevated leucocytosis, cxy with infiltrates, fever, NICHOLE ) - improving - Azithromax 500mg qdaily - start 08/17 - tamiflu 75mg po BID - start 2/4 - Rocephin - start 08/19 - cefepime 1gm q8hr - d/c'd today - start 08/17-08/19 - leucocytosis down, continue to monitor - influenza swab neg, bld cx NGTD, sputum with normal anay, legionella and strep pneumo negative #Asthma - acute hypoxic respiratory failure - solumedrol 60mg IVPB TID - venotin and duonebs PRN - nasal cannula 3lpm continous #Pre-diabetic, BGM likely elevated due to steroid use - BGM ACHS - NISS - metformin held due to NICHOLE #HTN - patient denies hx or home medications, zainab does not have precription for anti-hypertensives - likely elevated due to steriod. albuterol use, will continue to monitor #Vertigo - asymptomatic - uses meclezine 12.51 tab TID, will add if symptomatic #DVT - lovenox #Diet - diabetic diet Visit type - Emergency Visit Emergency Visit: No - New Patient This patient is new to me today: No - Critical Care Critical Care patient: Yes Total Critical Care Time (in minutes): 36 Critical Care Statement: The care of this patient involved high complexity decision making to prevent further life threatening deterioration of the patient 's condition and/or to evalute & treat vital organ system(s) failure or risk of failure. - Discharge Referral Referred to [facility] Med P.C.: No
--- NOTE | 2016-08-19 16:00 | PN ---
Physical Exam: SUBJECTIVE: Patient seen and examined at bedside. No overnight events. No new complaints. Breathing has improved. Feels much better today. Denies CP, BAHENA, SOB , abd. pain, n/v. OBJECTIVE: Vital Signs Period Temp Pulse Resp BP Sys/Pearl Pulse Ox Last 24 Hr 98.4 F-99 F 78-112 18-20 102-154/53-91 99-100 GENERAL: The patient is awake, alert, and fully oriented, in no acute distress. HEAD: Normal with no signs of trauma. EYES: PERRL, extraocular movements intact, sclera anicteric, conjunctiva clear. No ptosis. ENT: Ears normal, nares patent, oropharynx clear without exudates, moist mucous membranes. NECK: Trachea midline, full range of motion, supple. LUNGS: Breath sounds equal, bilateral scattered wheezes >R, no crackles, no accessory muscle use. HEART: Regular rate and rhythm, S1, S2 without murmur, rub or gallop. ABDOMEN: Soft, nontender, nondistended, normoactive bowel sounds, no guarding, no rebound, no hepatosplenomegaly, no masses. EXTREMITIES: 2+ pulses, warm, well-perfused, no edema. NEUROLOGICAL: Normal speech, gait not observed. PSYCH: Normal mood, normal affect. SKIN: Warm, dry, normal turgor, no rashes or lesions noted Laboratory Results - last 24 hr 08/18/16 08/18/16 08/19/16 16:34 22:56 05:05 WBC 23.5 H RBC 4.08 Hgb 12.2 Hct 36.6 MCV 89.8 MCHC 33.3 RDW 13.5 Plt Count 236 MPV 9.7 Neutrophils % 93.4 H Lymphocytes % 3.7 L D Monocytes % 2.7 L Eosinophils % 0.0 D Basophils % 0.2 Sodium Potassium Chloride Carbon Dioxide Anion Gap BUN Creatinine POC Glucometer 230.49671 231.50283 Random Glucose Calcium C-Reactive Protein 08/19/16 08/19/16 08/19/16 05:05 05:05 05:47 WBC RBC Hgb Hct MCV MCHC RDW Plt Count MPV Neutrophils % Lymphocytes % Monocytes % Eosinophils % Basophils % Sodium 142 Potassium 3.8 Chloride 105 Carbon Dioxide 26 Anion Gap 11 BUN 19 H D Creatinine 0.8 POC Glucometer 260.87697 Random Glucose 238 H D Calcium 8.8 C-Reactive Protein 4.8 H Cancelled Active Medications Generic Name Dose Route Start Last Admin Trade Name Freq PRN Reason Stop Dose Admin Acetaminophen 650 mg 08/18/16 16:22 08/19/16 03:49 Tylenol - PO 650 mg Q6H PRN Administration FEVER OR PAIN Albuterol Sulfate 1 amp 08/18/16 16:22 Ventolin 0.042trength) - NEB Q4H PRN ASTHMA Albuterol/Ipratropium 1 amp 08/18/16 18:00 08/19/16 11:25 Duoneb - NEB 1 amp QIDR [facility] Administration Enoxaparin Sodium 40 mg 08/19/16 10:00 08/19/16 09:39 Lovenox - SQ 40 mg DAILY [facility] Administration Azithromycin 250 mls @ 250 mls/hr 08/19/16 10:00 08/19/16 09:38 Zithromax 500mg Ivpb (Pre-Docked) IVPB 250 mls/hr DAILY [facility] Administration Ceftriaxone Sodium 50 mls @ 100 mls/hr 08/19/16 10:00 08/19/16 09:39 Rocephin 1gm Ivpb (Pre-Docked) IVPB 100 mls/hr DAILY [facility] Administration Insulin Aspart 1 vial 08/18/16 16:30 08/19/16 12:18 Novolog Vial Sliding Scale - SQ 4 units ACHS [facility] Administration Protocol Methylprednisolone Sodium Succinate 40 mg 08/19/16 18:00 Solu-Medrol - IVPB Q8H-IV [facility] Oseltamivir Phosphate 75 mg 08/18/16 22:00 08/19/16 09:39 Tamiflu - PO 08/22/16 09:59 75 mg BID [facility] Administration ASSESSMENT/PLAN: 71 yo F with PMHx of Asthma admitted to ICU for acute respiratory failure 2/2 presumptive influenza. Neuro: * AAO x3 Pulm: * supplemental O2 prn * maintain O2 sat. >90% * Continue Azithro and ceftriaxone as per ID * Tamiflu * Solumedrol 40mg IV Q8 * Duonebs QID * Albuterol PRN SOB. ID: * Tamiflu - RSV cultures pending. * Azithromycin and Ceftriaxone as per ID ENDO: * ADA diet * ISS ACHS * BGM ACHS Prophylaxis: * DVT- lovenox 40mg SQ F/E/N: * NO IVF * Lytes WNL * ADA diet Visit type - Emergency Visit Emergency Visit: Yes ED Registration Date: 08/17/16 Care time: The patient presented to the Emergency Department on the above date and was hospitalized for further evaluation of their emergent condition. - New Patient This patient is new to me today: Yes Date on this admission: 08/19/16 - Critical Care Critical Care patient: Yes Total Critical Care Time (in minutes): 33 Critical Care Statement: The care of this patient involved high complexity decision making to prevent further life threatening deterioration of the patient 's condition and/or to evalute & treat vital organ system(s) failure or risk of failure.
--- NOTE | 2016-08-19 16:04 | PN ---
Teaching Attending Note Name of Resident: Carmen Edwards ATTENDING PHYSICIAN STATEMENT I saw and evaluated the patient. I reviewed the resident's note and discussed the case with the resident. I agree with the resident's findings and plan as documented. SUBJECTIVE: Patient is comfortable without any difficulty breathing. OBJECTIVE: Vital Signs Temperature 98.8 F 08/19/16 14:00 Pulse Rate 110 H 08/19/16 14:00 Respiratory Rate 18 08/19/16 14:00 Blood Pressure 102/91 08/19/16 14:00 O2 Sat by Pulse Oximetry (%) 99 08/19/16 10:20 LUNG: Positive for Wheezing BL ,NAD, Comfortable CBCD WBC 23.5 K/mm3 (4.0-10.0) H 08/19/16 05:05 RBC 4.08 M/mm3 (3.60-5.2) 08/19/16 05:05 Hgb 12.2 GM/dL (10.7-15.3) 08/19/16 05:05 Hct 36.6 % (32.4-45.2) 08/19/16 05:05 MCV 89.8 fl (80-96) 08/19/16 05:05 MCHC 33.3 g/dl (32.0-36.0) 08/19/16 05:05 RDW 13.5 % (11.6-15.6) 08/19/16 05:05 Plt Count 236 K/MM3 (134-434) 08/19/16 05:05 MPV 9.7 fl (7.5-11.1) 08/19/16 05:05 CMP Sodium 142 mmol/L (136-145) 08/19/16 05:05 Potassium 3.8 mmol/L (3.5-5.1) 08/19/16 05:05 Chloride 105 mmol/L (98-107) 08/19/16 05:05 Carbon Dioxide 26 mmol/L (21-32) 08/19/16 05:05 Anion Gap 11 (8-16) 08/19/16 05:05 BUN 19 mg/dL (7-18) H D 08/19/16 05:05 Creatinine 0.8 mg/dL (0.55-1.02) 08/19/16 05:05 Creat Clearance w eGFR > 60 (>60) 08/18/16 05:20 Random Glucose 238 mg/dL (74-106) H D 08/19/16 05:05 Calcium 8.8 mg/dL (8.5-10.1) 08/19/16 05:05 Total Bilirubin 0.2 mg/dL (0.2-1.0) D 08/18/16 05:20 AST 29 U/L (15-37) D 08/18/16 05:20 ALT 22 U/L (12-78) 08/18/16 05:20 Alkaline Phosphatase 53 U/L (45-117) D 08/18/16 05:20 Total Protein 6.3 g/dl (6.4-8.2) L 08/18/16 05:20 Albumin 3.1 g/dl (3.4-5.0) L D 08/18/16 05:20 CARDIAC ENZYMES Creatine Kinase 270 IU/L (26-192) H 08/17/16 00:43 Troponin I < 0.02 ng/ml (0.00-0.05) 08/17/16 00:43 Current Medications Generic Name Dose Route Start Last Admin Trade Name Freq PRN Reason Stop Dose Admin Acetaminophen 650 mg 08/18/16 16:22 08/19/16 03:49 Tylenol - PO 650 mg Q6H PRN Administration FEVER OR PAIN Albuterol Sulfate 1 amp 08/18/16 16:22 Ventolin 0.042trength) - NEB Q4H PRN ASTHMA Albuterol/Ipratropium 1 amp 08/18/16 18:00 08/19/16 11:25 Duoneb - NEB 1 amp QIDR [facility] Administration Enoxaparin Sodium 40 mg 08/19/16 10:00 08/19/16 09:39 Lovenox - SQ 40 mg DAILY [facility] Administration Azithromycin 250 mls @ 250 mls/hr 08/19/16 10:00 08/19/16 09:38 Zithromax 500mg Ivpb (Pre-Docked) IVPB 250 mls/hr DAILY [facility] Administration Ceftriaxone Sodium 50 mls @ 100 mls/hr 08/19/16 10:00 08/19/16 09:39 Rocephin 1gm Ivpb (Pre-Docked) IVPB 100 mls/hr DAILY [facility] Administration Insulin Aspart 1 vial 08/18/16 16:30 08/19/16 12:18 Novolog Vial Sliding Scale - SQ 4 units ACHS [facility] Administration Protocol Methylprednisolone Sodium Succinate 40 mg 08/19/16 18:00 Solu-Medrol - IVPB Q8H-IV [facility] Oseltamivir Phosphate 75 mg 08/18/16 22:00 08/19/16 09:39 Tamiflu - PO 08/22/16 09:59 75 mg BID [facility] Administration Home Medications Medication Instructions Recorded Metformin HCl [Glucophage] 1,000 mg PO DAILY 08/17/16 ASSESSMENT AND PLAN: The patient is a 71 year old female being admitted for shortness of breath who presented to the emergency department with wheezing, shortness of breath, and chest discomfort # s/p Sepsis with Lactic acid level of 6.0--dropped to 1.31 ;no fever today , leukocytosis continues due to steroid use ; Influenza/Pneumonia and also patient is on steroid ,ID consulted . Discontinued IV Antibiotic Cefepime as per ID # Acute Lactic acidosis improved from 6.0-1.3 improved # Possible Influenza, on empirice Tamiflu will continue since patient is doing better. quick swab is negative for now, culture was send out pending. Droplet precaution continue . # Pneumonia(CAP) On IV rocephin/zithromax continue, will give her one dose of Vancomycin discussed with ID, Pulmonary consult appreciated # Acute Asthma exacerabtion ; On duoneb tx, Steroids IV 60mg will change to 40mg q8h continue # Hx of T2DM on metformin will hold off for now. SS with coverage will transfer the patient out of ICU to med surg floor will discharge patient in am.
[2016-08-19] MEDS: methylPREDNISolone NA SUCC 40 MG/1 ML VIAL IVPB SCH (17:07)
[2016-08-20] MEDS: methylPREDNISolone NA SUCC 40 MG/1 ML VIAL IVPB SCH ×2 (03:00→09:05)
[2016-08-20 05:39] LABS: BASOPHIL 0.1 % (0-2.0); MCH 29.3 pg (25.7-33.7); MCHC 33.1 g/dl (32.0-36.0); MEAN CELL VOLUME 88.5 fl (80-96); MEAN PLT VOLUME 9.2 fl (7.5-11.1); NEUTROPHILS 90.1 % (42.8-82.8); PLATELET COUNT 222 K/MM3 (134-434); RDW 12.8 % (11.6-15.6); WHITE BLOOD COUNT 18.8 K/mm3 (4.0-10.0)
[2016-08-20 06:04] LABS: ALBUMIN 2.9 g/dl (3.4-5.0); ANION GAP 10 (8-16); BILIRUBIN,TOTAL 0.3 mg/dL (0.2-1.0); CALCIUM 9.1 mg/dL (8.5-10.1); CO2 30 mmol/L (21-32); CREATININE 0.7 mg/dL (0.55-1.02); GLUCOSE,RANDOM 184 mg/dL (74-106); SGOT/AST 26 U/L (15-37); SGPT/ALT 31 U/L (12-78); TOT PROT 5.9 g/dl (6.4-8.2)
[2016-08-20 06:05] LABS: ALK PHOS 52 U/L (45-117)
[2016-08-20] MEDS: INSULIN SLIDING SCALE (NOVOLOG) 1 VIAL SQ SCH ×2 (06:13→11:49)
[2016-08-20] MEDS: ALBUTEROL SO4 2.5/IPRATROPIUM 0.5 INH SOL 3 ML VIAL.NEB. NEB SCH ×2 (06:32→11:20)
[2016-08-20] MEDS ORDERED: PT OWN MED DRAWER 7, Y5N ONE (08:53)
[2016-08-20] MEDS: ENOXAPARIN NA (PORCINE) 40 MG/0.4 ML DISP.SYRIN SQ SCH (09:05)
[2016-08-20] MEDS: AZITHROMYCIN IVPB 250 ML IVPB SCH (09:05)
[2016-08-20] MEDS: CEFTRIAXONE 50 ML IVPB SCH (09:05)
[2016-08-20] MEDS: OSELTAMIVIR PHOSPHATE 75 MG CAPSULE PO SCH (09:08)
[2016-08-20] MEDS ORDERED: INSULIN (NOVOLOG) ASPART 100 UNITS/ML 10ML VIAL ONE (11:48)
--- NOTE | 2016-08-20 12:54 | PN ---
Teaching Attending Note Name of Resident: Twin Mendez ATTENDING PHYSICIAN STATEMENT I saw and evaluated the patient. I reviewed the resident's note and discussed the case with the resident. I agree with the resident's findings and plan as documented. SUBJECTIVE: Patient seen and examined in the ICU. Awake and alert. Breathing and body aches are improving. Still with some congested cough. CT Chest : RUL infiltrates consistent with PNA / questionable 4 mm nodule (May be part if pneumonic process) Intake & Output 08/17/16 08/18/16 08/19/16 08/20/16 23:59 23:59 23:59 23:59 Intake Total 2955 1850 1600 Output Total 2050 300 200 Balance 905 1550 1400 Weight 157 lb 9.6 oz 156 lb 4.8 oz 158 lb 11.2 oz 162 lb 11.218 oz Last Vital Signs Temp Pulse Resp BP Pulse Ox 98 F 79 18 128/69 97 08/20/16 10:00 08/20/16 10:35 08/20/16 10:00 08/20/16 08:00 08/20/16 10:35 Active Medications Acetaminophen (Tylenol -) 650 mg PO Q6H PRN PRN Reason: FEVER OR PAIN Last Admin: 08/19/16 03:49 Dose: 650 mg Albuterol Sulfate (Ventolin 0.042trength) -) 1 amp NEB Q4H PRN PRN Reason: ASTHMA Albuterol/Ipratropium (Duoneb -) 1 amp NEB QIDR [facility] Last Admin: 08/20/16 06:32 Dose: 1 amp Enoxaparin Sodium (Lovenox -) 40 mg SQ DAILY [facility] Last Admin: 08/20/16 09:05 Dose: 40 mg Azithromycin (Zithromax 500mg Ivpb (Pre-Docked)) 250 mls @ 250 mls/hr IVPB DAILY [facility] Last Admin: 08/20/16 09:05 Dose: 250 mls/hr Ceftriaxone Sodium (Rocephin 1gm Ivpb (Pre-Docked)) 50 mls @ 100 mls/hr IVPB DAILY [facility] Last Admin: 08/20/16 09:05 Dose: 100 mls/hr Insulin Aspart (Novolog Vial Sliding Scale -) 1 vial SQ ACHS [facility] PRN Reason: Protocol Last Admin: 08/20/16 11:49 Dose: 6 units Methylprednisolone Sodium Succinate (Solu-Medrol -) 40 mg IVPB Q8H-IV [facility] Last Admin: 08/20/16 09:05 Dose: 40 mg Montelukast Sodium (Singulair -) 10 mg PO HS [facility] Oseltamivir Phosphate (Tamiflu -) 75 mg PO BID [facility] Stop: 08/22/16 09:59 Last Admin: 08/20/16 09:08 Dose: 75 mg GENERAL: awake, alert, and oriented, NAD. HEAD: Normal with no signs of trauma. EYES: sclera anicteric, conjunctiva clear. ENT: clear without exudates, moist mucous membranes. NECK: Trachea midline, full range of motion, supple. LUNGS: (+) scattered expiratory wheezing, no accessory muscle use. HEART: RRR, S1, S2 without murmur, rub or gallop. ABDOMEN: Soft, nontender, nondistended, normoactive bowel sounds, no guarding, no rebound, no hepatosplenomegaly, no masses. EXTREMITIES: 2+ pulses, warm, well-perfused, no edema. NEUROLOGICAL: Non-focal PSYCH: Normal mood, normal affect. SKIN: Warm to touch , dry, normal turgor, no rashes or lesions noted Laboratory Results - last 24 hr 08/19/16 08/19/16 08/19/16 11:37 16:38 20:59 WBC RBC Hgb Hct MCV MCHC RDW Plt Count MPV Neutrophils % Lymphocytes % Monocytes % Eosinophils % Basophils % Sodium Potassium Chloride Carbon Dioxide Anion Gap BUN Creatinine Creat Clearance w eGFR POC Glucometer 224.17912 191.04317 235.21022 Random Glucose Calcium Total Bilirubin AST ALT Alkaline Phosphatase Total Protein Albumin 08/20/16 08/20/16 08/20/16 05:00 05:00 05:21 WBC 18.8 H RBC 4.15 Hgb 12.2 Hct 36.7 MCV 88.5 MCHC 33.1 RDW 12.8 Plt Count 222 MPV 9.2 Neutrophils % 90.1 H Lymphocytes % 6.3 L D Monocytes % 3.5 L Eosinophils % 0.0 Basophils % 0.1 Sodium 143 Potassium 3.9 Chloride 103 Carbon Dioxide 30 Anion Gap 10 BUN 17 Creatinine 0.7 Creat Clearance w eGFR > 60 POC Glucometer 195.89857 Random Glucose 184 H D Calcium 9.1 Total Bilirubin 0.3 D AST 26 ALT 31 D Alkaline Phosphatase 52 Total Protein 5.9 L Albumin 2.9 L Problem List - Problems (1) Pneumonia Code(s): J18.9 - PNEUMONIA, UNSPECIFIED ORGANISM (2) Asthma Code(s): J45.909 - UNSPECIFIED ASTHMA, UNCOMPLICATED (3) Diabetes mellitus Code(s): E11.9 - TYPE 2 DIABETES MELLITUS WITHOUT COMPLICATIONS Assessment/Plan -Supp FiO2 for SpO2 >92% -BD TX -Wean Steroids -ABX per ID -Tamiflu -Glycemic control -Lovenox -PO as tolerated -Floor -Questionable 4 mm RUL nodule -> Can repeat CT chest in [address] Stiles
[2016-08-20 14:22] VITALS: BP 125/78; PULSE 88; TEMP 98.4
--- NOTE | 2016-08-20 14:22 | PN ---
Teaching Attending Note Name of Resident: Carmen Edwards ATTENDING PHYSICIAN STATEMENT I saw and evaluated the patient. I reviewed the resident's note and discussed the case with the resident. I agree with the resident's findings and plan as documented. SUBJECTIVE: Comfortable, feeling better, with no acute distress, patient is afebrile. Vitals are stable. OBJECTIVE: Vital Signs Temperature 98 F 08/20/16 10:00 Pulse Rate 79 08/20/16 10:35 Respiratory Rate 18 08/20/16 10:00 Blood Pressure 128/69 08/20/16 08:00 O2 Sat by Pulse Oximetry (%) 97 08/20/16 10:35 GENERAL: The patient is awake, alert, and fully oriented, in no acute distress. HEAD: Normal with no signs of trauma. EYES: PERRL, extraocular movements intact, sclera anicteric, conjunctiva clear. No ptosis. ENT: Ears normal, nares patent, oropharynx clear without exudates, moist mucous membranes. NECK: Trachea midline, full range of motion, supple. LUNGS: positive for scattered wheezing bl, GAE BL , no accessory muscle use. HEART: RRR, S1, S2 without murmur, rub or gallop. ABDOMEN: Soft, nontender, nondistended, normoactive bowel sounds, no guarding, no rebound, no hepatosplenomegaly, no masses. EXTREMITIES: 2+ pulses, warm, well-perfused, no edema. NEUROLOGICAL: Cranial nerves II through XII grossly intact. Normal speech, gait not observed. PSYCH: Normal mood, normal affect. SKIN: Warm to touch , dry, normal turgor, no rashes or lesions noted CBCD WBC 18.8 K/mm3 (4.0-10.0) H 08/20/16 05:00 RBC 4.15 M/mm3 (3.60-5.2) 08/20/16 05:00 Hgb 12.2 GM/dL (10.7-15.3) 08/20/16 05:00 Hct 36.7 % (32.4-45.2) 08/20/16 05:00 MCV 88.5 fl (80-96) 08/20/16 05:00 MCHC 33.1 g/dl (32.0-36.0) 08/20/16 05:00 RDW 12.8 % (11.6-15.6) 08/20/16 05:00 Plt Count 222 K/MM3 (134-434) 08/20/16 05:00 MPV 9.2 fl (7.5-11.1) 08/20/16 05:00 CMP Sodium 143 mmol/L (136-145) 08/20/16 05:00 Potassium 3.9 mmol/L (3.5-5.1) 08/20/16 05:00 Chloride 103 mmol/L (98-107) 08/20/16 05:00 Carbon Dioxide 30 mmol/L (21-32) 08/20/16 05:00 Anion Gap 10 (8-16) 08/20/16 05:00 BUN 17 mg/dL (7-18) 08/20/16 05:00 Creatinine 0.7 mg/dL (0.55-1.02) 08/20/16 05:00 Creat Clearance w eGFR > 60 (>60) 08/20/16 05:00 Random Glucose 184 mg/dL (74-106) H D 08/20/16 05:00 Calcium 9.1 mg/dL (8.5-10.1) 08/20/16 05:00 Total Bilirubin 0.3 mg/dL (0.2-1.0) D 08/20/16 05:00 AST 26 U/L (15-37) 08/20/16 05:00 ALT 31 U/L (12-78) D 08/20/16 05:00 Alkaline Phosphatase 52 U/L (45-117) 08/20/16 05:00 Total Protein 5.9 g/dl (6.4-8.2) L 08/20/16 05:00 Albumin 2.9 g/dl (3.4-5.0) L 08/20/16 05:00 CARDIAC ENZYMES Creatine Kinase 270 IU/L (26-192) H 08/17/16 00:43 Troponin I < 0.02 ng/ml (0.00-0.05) 08/17/16 00:43 Current Medications Generic Name Dose Route Start Last Admin Trade Name Freq PRN Reason Stop Dose Admin Acetaminophen 650 mg 08/18/16 16:22 08/19/16 03:49 Tylenol - PO 650 mg Q6H PRN Administration FEVER OR PAIN Albuterol Sulfate 1 amp 08/18/16 16:22 Ventolin 0.042trength) - NEB Q4H PRN ASTHMA Albuterol/Ipratropium 1 amp 08/18/16 18:00 08/20/16 11:20 Duoneb - NEB 1 amp QIDR [facility] Administration Enoxaparin Sodium 40 mg 08/19/16 10:00 08/20/16 09:05 Lovenox - SQ 40 mg DAILY [facility] Administration Azithromycin 250 mls @ 250 mls/hr 08/19/16 10:00 08/20/16 09:05 Zithromax 500mg Ivpb (Pre-Docked) IVPB 250 mls/hr DAILY [facility] Administration Ceftriaxone Sodium 50 mls @ 100 mls/hr 08/19/16 10:00 08/20/16 09:05 Rocephin 1gm Ivpb (Pre-Docked) IVPB 100 mls/hr DAILY [facility] Administration Insulin Aspart 1 vial 08/18/16 16:30 08/20/16 11:49 Novolog Vial Sliding Scale - SQ 6 units ACHS [facility] Administration Protocol Methylprednisolone Sodium Succinate 40 mg 08/19/16 18:00 08/20/16 09:05 Solu-Medrol - IVPB 40 mg Q8H-IV [facility] Administration Montelukast Sodium 10 mg 08/20/16 22:00 Singulair - PO HS [facility] Oseltamivir Phosphate 75 mg 08/18/16 22:00 08/20/16 09:08 Tamiflu - PO 08/22/16 09:59 75 mg BID [facility] Administration Home Medications Medication Instructions Recorded Metformin HCl [Glucophage] 1,000 mg PO DAILY 08/17/16 Evaluation of the lung gonzales demonstrates bilateral apical pleural thickening. Within the right lung apex, there is an area of ill-defined opacification that could represent an acute infiltrate. These changes could also be more chronic in nature. Clinical correlation and follow-up is recommended. There is also a 4 mm nodule within the right upper lobe. The remainder of the lung gonzales are clear with no pulmonary masses or areas of acute consolidation present. There are some increased interstitial markings diffusely and a mild degree of platelike atelectasis at the left lung base. Examination of the mediastinum demonstrates no evidence of mediastinal masses, fluid collections or lymphadenopathy. The heart is not enlarged. Heavy coronary artery calcification is present. A small hiatal hernia is also identified. Evaluation of the upper abdomen demonstrates no acute pathology. There is no evidence of acute bony abnormalities. IMPRESSION: Possible acute consolidation within the right upper lobe. Clinical correlation and follow-up recommended. Please see above discussion. ASSESSMENT AND PLAN: The patient is a 71 year old female being admitted for shortness of breath who presented to the emergency department with wheezing, shortness of breath, and chest discomfort. # s/p Sepsis with Lactic acid level of 6.0--dropped to 1.31 ;Afebrile for over 24 hours, comfortable , leukocytosis trending down but still slightly elevated due to steroid use ; discharge the patient with taper dose of steroids ; Influenza is negative , culture is still pending. Discussed with ID Dr.Barry harvey to discharge the patient on Ceftin for 7 more days. ok to discharge the patient on Ceftin 500mg po bid x 7 more days Tamiflu 75mg po 2 more day , Zithromax 250mg po daily x 2 more days. # Acute Lactic acidosis improved from 6.0-1.3 improved # Possible Influenza, on empirice Tamiflu will continue since patient is doing better. quick swab is negative for now, culture was send out pending. Droplet precaution continue . # Pneumonia(CAP) On IV rocephin/zithromax continue, will give her one dose of Vancomycin discussed with ID, Pulmonary consult appreciated # Acute Asthma exacerabtion ; On duoneb tx, Steroids IV 60mg will change to 40mg q8h continue # Hx of T2DM on metformin will hold off for now. SS with coverage Discharge the patient today Follow with Dip Tanker we recommend since Heavy coronary artery calcification is present.on CT scan Follow with , repeat CT scan of Chest in 3 months since there is also a 4 mm nodule within the right upper lobe Follow with your PMD in a week period..
--- NOTE | 2016-08-20 14:25 | PN ---
Progress Note, Physician History of Present Illness: OOB in chair Feeling much better No c/o chest pain or dyspnea Occasional cough Afebrile with elevated WBC on steroids - Current Medication List Current Medications: Active Medications Acetaminophen (Tylenol -) 650 mg PO Q6H PRN PRN Reason: FEVER OR PAIN Last Admin: 08/19/16 03:49 Dose: 650 mg Albuterol Sulfate (Ventolin 0.042trength) -) 1 amp NEB Q4H PRN PRN Reason: ASTHMA Albuterol/Ipratropium (Duoneb -) 1 amp NEB QIDR [facility] Last Admin: 08/20/16 11:20 Dose: 1 amp Enoxaparin Sodium (Lovenox -) 40 mg SQ DAILY [facility] Last Admin: 08/20/16 09:05 Dose: 40 mg Azithromycin (Zithromax 500mg Ivpb (Pre-Docked)) 250 mls @ 250 mls/hr IVPB DAILY [facility] Last Admin: 08/20/16 09:05 Dose: 250 mls/hr Ceftriaxone Sodium (Rocephin 1gm Ivpb (Pre-Docked)) 50 mls @ 100 mls/hr IVPB DAILY [facility] Last Admin: 08/20/16 09:05 Dose: 100 mls/hr Insulin Aspart (Novolog Vial Sliding Scale -) 1 vial SQ ACHS [facility] PRN Reason: Protocol Last Admin: 08/20/16 11:49 Dose: 6 units Methylprednisolone Sodium Succinate (Solu-Medrol -) 40 mg IVPB Q8H-IV [facility] Last Admin: 08/20/16 09:05 Dose: 40 mg Montelukast Sodium (Singulair -) 10 mg PO HS [facility] Oseltamivir Phosphate (Tamiflu -) 75 mg PO BID [facility] Stop: 08/22/16 09:59 Last Admin: 08/20/16 09:08 Dose: 75 mg - Objective Vital Signs: Vital Signs Temperature 98 F 08/20/16 10:00 Pulse Rate 79 08/20/16 10:35 Respiratory Rate 18 08/20/16 10:00 Blood Pressure 128/69 08/20/16 08:00 O2 Sat by Pulse Oximetry (%) 97 08/20/16 10:35 Constitutional: Yes: No Distress Eyes: Yes: Conjunctiva Clear Cardiovascular: Yes: Regular Rate and Rhythm, S1, S2 Respiratory: Yes: Rhonchi, Other (bilateral rhonchi) Gastrointestinal: Yes: Normal Bowel Sounds, Soft. No: Tenderness Edema: Yes Labs: CBC, BMP 08/20/16 05:00 08/20/16 05:00 Assessment/Plan Sepsis, secondary to pulmonary source- resolved Possible pneumona v. viral syndrome (influenza) Fever/ leukocytosis- improved Exacerbation COPD PCN allergy CT shows small infiltrate v. chronic changes RUL, possible nodule Would substitute ceftin 500mg po bid x 7d Complete 5d course Tamiflu Steroids, bronchodilators Pulmonary follow up, follow up CT chest as outpatient (possible nodule).
--- NOTE | 2016-08-20 14:42 | DS ---
Physical Exam: SUBJECTIVE: Patient seen and examined. No complaints, slept well last night. cough nearly diminished. feels comfortable on room air. Denies fever, chills, abdominal pain, difficulty breathing. OBJECTIVE: Vital Signs Period Temp Pulse Resp BP Sys/Pearl Pulse Ox Last 24 Hr 98 F-98.4 F 71-106 18-22 117-143/64-98 97-99 PHYSICAL EXAM GENERAL: The patient is awake, alert, and fully oriented, in no acute distress. EYES: PERRL, extraocular movements intact, ENT: Ears normal, nares patent, oropharynx clear without exudates, moist mucous membranes. NECK: Trachea midline, full range of motion, supple. LUNGS: Breath sounds equal, scattered wheezes, no accessory muscle use. HEART: Regular rate and rhythm, S1, S2 without murmur, rub or gallop. ABDOMEN: Soft, nontender, nondistended, normoactive bowel sounds, no guarding, no rebound EXTREMITIES: 2+ pulses, warm, well-perfused, no edema. NEUROLOGICAL: Normal speech, gait not observed. LABS Laboratory Results - last 24 hr 08/19/16 08/19/16 08/19/16 11:37 16:38 20:59 WBC RBC Hgb Hct MCV MCHC RDW Plt Count MPV Neutrophils % Lymphocytes % Monocytes % Eosinophils % Basophils % Sodium Potassium Chloride Carbon Dioxide Anion Gap BUN Creatinine Creat Clearance w eGFR POC Glucometer 224.87301 191.69876 235.70401 Random Glucose Calcium Total Bilirubin AST ALT Alkaline Phosphatase Total Protein Albumin 08/20/16 08/20/16 08/20/16 05:00 05:00 05:21 WBC 18.8 H RBC 4.15 Hgb 12.2 Hct 36.7 MCV 88.5 MCHC 33.1 RDW 12.8 Plt Count 222 MPV 9.2 Neutrophils % 90.1 H Lymphocytes % 6.3 L D Monocytes % 3.5 L Eosinophils % 0.0 Basophils % 0.1 Sodium 143 Potassium 3.9 Chloride 103 Carbon Dioxide 30 Anion Gap 10 BUN 17 Creatinine 0.7 Creat Clearance w eGFR > 60 POC Glucometer 195.82341 Random Glucose 184 H D Calcium 9.1 Total Bilirubin 0.3 D AST 26 ALT 31 D Alkaline Phosphatase 52 Total Protein 5.9 L Albumin 2.9 L Microbiology 08/17/16 00:43 Blood - Peripheral Venous Blood Culture - Preliminary NO GROWTH OBTAINED AFTER 72 HOURS, INCUBATION TO CONTINUE FOR 2 DAYS. 08/17/16 00:43 Blood - Peripheral Venous Blood Culture - Preliminary NO GROWTH OBTAINED AFTER 72 HOURS, INCUBATION TO CONTINUE FOR 2 DAYS. 08/17/16 00:34 Nasopharyngeal Swab Respiratory Virus Panel - Preliminary - NEGATIVE 08/17/16 06:30 Sputum - Expectorated Sputum Culture - Final NORMAL RESPIRATORY GINA 08/17/16 09:15 Urine For Antigen Detection Legionella Antigen - Final - NEGATIVE 08/17/16 09:15 Urine For Antigen Detection Streptococcus pneumoniae Antigen (M - Final - NEGATIVE 08/17/16 00:34 Nasopharyngeal Swab Influenza Types A,B Antigen (IKER) - Final - NEGATIVE HOSPITAL COURSE: Date of Admission:08/17/16-Date of Discharge: 08/20/16 71 year old woman with pre-diabetes presented to the ED with chief complaints of SOB, chills and rhinorrhea, for 1 weeks prior and having finished a 7-course of antibiotics in July for similar URI symptoms. She was found to have an elevated wbc, lactic acid, and fever of 101.2. Chest xray was negative for infiltrate, effusion or consolidation. She was admitted for sepsis secondary to community acquired pneumonia. She was treated with Azithromax 500mg daily and tamiflu 75mg po BId for 5 days, Cefepime 1gm q8hr for 3 days and 2 days of rocephin, solumedrol 40mg q8hr IV for 7 days. Microbiology findings summarized above. She improved with antibiotics, tamiflu and steroids. On Chest Ct she was found to have a 4mm nodule in the RUL nodule and heavily calcified coronary arteries that will require further work-up as outpatient. In addition to PCP, she was referred to Dr. Stiles and Dr. Butler. Medications: Take Tamiflu 75mg 1 tablet twice daily for 2 more days to complete a 7-day course Take Ceftin 500mg 1 tablet twice daily for 7 days Take Azithromycin 500mg 1 tablet daily for 4 more days to complete a 7-day course Take Prednisone in a tapered dose: 40mg for 4 days 30mg for 3 days 20mg for 2 days 10mg for 1 day Take Bacid 1 tablet twice daily for 15 days. Minutes to complete discharge: 40 Discharge Summary Reason For Visit: PNEUMONIA Current Active Problems Asthma (Acute) Diabetes mellitus (Acute) Pneumonia (Acute) Condition: Fair - Instructions Diet, Activity, Other Instructions: Take Tamiflu 75mg 1 tablet twice daily for 2 more days to complete a 7-day course Take Ceftin 500mg 1 tablet twice daily for 7 days Take Azithromycin 500mg 1 tablet daily for 4 more days to complete a 7-day course Take Prednisone in a tapered dose: 40mg for 4 days 30mg for 3 days 20mg for 2 days 10mg for 1 day Take Bacid 1 tablet twice daily for 15 days. Continue your Metforim and nebulizar treatments at home. Follow-up with your Primary care doctor in 1 week regarding evaluation of any continuing symptoms, recent hospitalization and chest CT findings. Have your blood sugar tested to evaluate your pre-diabetes. Follow-up with Dr. Stiles, Police Shift Commander, in 2 weeks regarding your chest CT findings. There was a 4mm nodule in the right upper lobe of your lung, it is recommended to repeat the chest CT in 3 to 6 months. Follow-up with Dr. Woodson, Digital Sales Assistant, in 2 weeks regarding findings of heavy coronary artery calcifications on chest CT. If you develop difficulty breathing, chest pain, or any new symptoms, return to the hospital. Referrals: Jamse Gutierrez [Primary Care Provider] - Surya Butler MD [Staff Physician] - Delvis Stiles MD [Staff Physician] - Disposition: HOME - Home Medications Comprehensive Discharge Medication List: Ambulatory Orders Metformin HCl [Glucophage] 1,000 mg PO DAILY 08/17/16 Azithromycin 500 mg PO DAILY #4 tablet 08/20/16 Cefuroxime Axetil [Ceftin -] 500 mg PO Q12H #14 tablet 08/20/16 Lactobacillus Acidophilus [Bacid -] 1 each PO BID #30 tab 08/20/16 Oseltamivir Phosphate [Tamiflu -] 75 mg PO BID #4 capsule 08/20/16 Prednisone 10 mg PO DAILY #30 tablet 08/20/16 This patient is new to me today: No Emergency Visit: No Critical Care patient: Yes Total Critical Care Time (in minutes): 33 Critical Care Statement: The care of this patient involved high complexity decision making to prevent further life threatening deterioration of the patient 's condition and/or to evalute & treat vital organ system(s) failure or risk of failure. - Discharge Referral [facility]erred to [facility] No
[2016-08-20] MEDS ORDERED: MONTELUKAST NA 10 MG TABLET PO SCH (22:00)
== END 2016-08-20 15:55 | disposition home or self-care (01) | DRG 871 ==
LOC: JER 23:33 → SUPCPDRO 23:33 → JERBED 08-17 01:50 → UNDOADMIN 08-17 02:13 → JERBED 08-17 02:13 → J6S 08-17 03:43 → JICU 08-17 11:15
PROVIDERS: ADMIT Internal Medicine; ATTEND Internal Medicine
DX: A41.9 Sepsis, unspecified organism (principal); J18.9 Pneumonia, unspecified organism; J96.01 Acute respiratory failure with hypoxia; E87.2 Acidosis; J45.41 Moderate persistent asthma with (acute) exacerbation; J11.1 Influenza due to unidentified influenza virus with other respiratory manifestations; E11.9 Type 2 diabetes mellitus without complications; Z79.84 Long term (current) use of oral hypoglycemic drugs; Z87.891 Personal history of nicotine dependence; R42 Dizziness and giddiness; Z88.0 Allergy status to penicillin
CPT/HCPCS: 36415; 36600; 71010-TC; 71250-TC; 80048; 80053; 80061; 81003; 82375; 82550; 82553; 82803; 83050; 83605; 83721; 83735; 83880; 84100; 84484; 85025; 86140; 87040; 87070; 87086; 87205; 87254; 87804; 87899; 93005; 93010; 93306-TC; 94150; 94640; 99284-25